=== PATIENT | male | born 1960 | race Caucasian/White ===

== ENCOUNTER → 2020-08-11 07:19 | Outpatient (CLI) | payer OTHER, SELFPAY ==
[2020-08-11 10:34] LABS: ALB/GLOB Ratio 0.9 RATIO (0.9-2.4); AST(SGOT) 16 U/L (15-37); Alanine Aminotransfer ALT/SGPT 24 U/L (16-61); Albumin, Serum 3.5 g/dL (3.2-5.0); Alkaline Phosphatase 107 U/L (45-117); Anion Gap 5 (5-15); BUN 10 mg/dL (7-18); BUN/Creat Ratio 11.4 RATIO (10-20); Calcium,Total 8.6 mg/dL (8.5-10.1); Chloride 108 mmol/L (98-107); Cholesterol 136 mg/dL (200); Creatinine, Serum 0.87 mg/dL (0.70-1.30); EST Glomerular Filtration Rate 95 mL/min (>60); Est Glom Filt Rate - Afr Amer 115 mL/min (>60); Glucose 99 mg/dL (74-106); High Density Lipoprotein 47 mg/dL; Protein, Total 7.5 g/dL (6.4-8.2); Sodium Level 141 mmol/L (136-145); Triglycerides 133 mg/dL; Very Low Density Lipoprotein 27 mg/dL (5-40)
[2020-08-12 15:02] LABS: PSA, Free 0.99 ng/mL; PSA, Free % 12.7 % (.); PSA, Total Ultrasensitive 7.8 ng/mL (0.0-4.0)
== END ==
PROVIDERS: PCP Family Medicine; Referring Provider Family Medicine; Visit Provider Family Medicine
DX: E78.5 Hyperlipidemia, unspecified (principal); R97.20 Elevated prostate specific antigen [PSA]
CPT/HCPCS: 36415; 80053; 80061; 84153; 84154

== ENCOUNTER → 2020-12-20 15:24 | Outpatient (CLI) | payer OTHER, SELFPAY ==
[2020-12-23 16:33] LABS: PSA, Free % 10.1 % (.); PSA, Total Ultrasensitive 10.9 ng/mL (0.0-4.0)
== END ==
PROVIDERS: PCP Family Medicine; Referring Provider Family Medicine; Visit Provider Family Medicine
DX: R97.20 Elevated prostate specific antigen [PSA] (principal)
CPT/HCPCS: 36415; 84153; 84154

== ENCOUNTER → 2020-12-26 15:30 | Outpatient (CLI) | payer OTHER, SELFPAY ==
--- NOTE | 2020-12-26 15:30 | LES_PTH ---
PATIENT: INGA EDWARD LOC: [facility] U#:[id number] AGE/SX: 65/M ROOM: RE12/26/[address]: Dr. Kelechi Felder MD : 1960 BED: DIS: SPEC #: [id number] RECD: 12/26/20 18:10 STATUS: EVITA TONIO #: [id number] CHECO: 12/26/20 15:[address]: Kelechi Felder DEPT: SURGICAL PATHOLOGY RECD BY: Laura Augustine Tissues: Skin of face, NOS Procedures: Surgery Specimen Level IV HEADER OPERATION: Shave biopsy atypical nevus right side face PRE-OP DIAGNOSIS: Rule out SCC TISSUE SUBMITTED: Shave biopsy atypical nevus face right side MICROSCOPIC DIAGNOSIS Right side of face, shave biopsy: Mild actinic change and extensive solar elastosis. Demodex folliculorum. AM:freya 12/28/2020 MICROSCOPIC DESCRIPTION Slides are reviewed. GROSS DESCRIPTION Received in fixative is one container labeled with the patient's name and designated shave biopsy. The specimen consists of a shave biopsy of griggs-white skin measuring 0.6 x 0.6 x 0.1 cm. The specimen is inked and submitted entirely in one cassette. It will be sectioned at the time of embedding. / SJ:freya 12/27/20 TC:5 [facility]: [id number]
== END ==
PROVIDERS: PCP Family Medicine; Referring Provider Family Medicine; Visit Provider Family Medicine
DX: B88.0 Other acariasis (principal)
CPT/HCPCS: 88305

== ENCOUNTER → 2021-06-27 11:20 | Outpatient (CLI) | payer OTHER, SELFPAY | PROVIDERS: PCP Family Medicine; Visit Provider Family Medicine | DX: R97.20 Elevated prostate specific antigen [PSA] (principal) | CPT/HCPCS: 36415; 84153 ==

== ENCOUNTER → 2021-08-15 10:15 | Outpatient (CLI) | payer OTHER, SELFPAY ==
--- NOTE | 2021-08-15 10:20 | MRI_ITS ---
STUDY: MR PELVIS WITH AND WITHOUT CONTRAST (PROSTATE) REASON FOR EXAM: Male, 61 years old. Elevated PSA TECHNIQUE: Standardized multiparametric prostate MRI with T1, T2, DWI/ADC sequences were obtained in 3 orthogonal planes, and dynamic contrast enhancement sequences. 50 ml of dotarem contrast material was administered intravenously for the contrast portion of the examination. COMPARISON: None. FINDINGS: The prostate volume measures 56 mm3. The contours of the prostate gland are lobulated. There is mild mass effect on the bladder base. The transition zone is heterogenous. PI-RADS DWI score 2 - Hypointense within a BPH nodule on ADC. PI-RADS T2W score 2 - A mostly encapsulated nodule OR a homogeneous circumscribed nodule without encapsulation (atypical nodule) or a homogeneous mildly hypointense area between nodules.. Contrast enhancement no early or contemporaneous enhancement; or diffuse multifocal enhancement NOT corresponding to a focal finding on T2W and/or DWI or focal ehancement responding to a lesion demonstrating features of BPH onT2WI (including features of extruded BPH in the PZ). The peripheral zone is homogenous. PI-RADS DWI score 2 - Linear/wedge shaped hypointense on ADC and/or linear/wedge shaped hyperintense on high b-value DWI. PI-RADS T2W score 1 - Uniformaly hyperintense (normal). Contrast enhancement no early or contemporaneous enhancement; or diffuse multifocal enhancement NOT corresponding to a focal finding on T2W and/or DWI or focal enhancement responding to a lesion demonstrating features of BPH onT2WI (including features of extruded BPH in the PZ). The seminal vesicles demonstrate normal margins and T2 signal pattern. No mass lesion or invasion depicted. The rectoprostatic angles are normal. Urinary bladder is normal without wall thickening. The vascular structures of the are normal. The visualized hollow viscus structures are normal. Colonic diverticulosis. No bone marrow edema or mass lesion depicted. Susceptibility artifact in the right hip replacement. MRI/Pelvis W/WO Contrast IMPRESSION: 1. PIRADS v2.1 2019 -- 2 - Low (clinically significant cancer is unlikely). Electronically Signed: Venktaa Napier MD (Brooks) at 14:21 EDT , Service support ,
--- NOTE | 2021-08-15 10:29 | RAD_ITS ---
STUDY: X-RAY - ORBITS REASON FOR EXAM: Male, 61 years old. HX METAL TO EYE, PRE MRI TECHNIQUE: 2 view(s) of the orbits were obtained. COMPARISON: None. FINDINGS: Normal bilateral orbits without a metallic orbital foreign body. Normal visualized facial bones. Opacification of the right maxillary sinus. The soft tissue structures are unremarkable. RAD/Orbits for Foreign Body IMPRESSION: No demonstrated metallic orbital foreign body. The patient is cleared for an MRI examination. Electronically Signed: Len Rice MD at 12:24 EDT , Service support ,
[2021-08-15 10:46] LABS: CREATININE FINGERSTICK < 0.6 mg/dL (0.70-1.30); EGFR FINGERSTICK > 60.0000 mL/min (>60)
== END ==
PROVIDERS: PCP Family Medicine; Referring Provider Nurse Practitioner Adult Health; Visit Provider Nurse Practitioner Adult Health
DX: R97.20 Elevated prostate specific antigen [PSA] (principal)
CPT/HCPCS: 70030; 72197; A9575

== ENCOUNTER 2022-01-31 08:33 | Outpatient (CLI) | payer OTHER, SELFPAY | END 2022-01-31 23:59 | disposition home or self-care (01) | PROVIDERS: PCP Family Medicine; Referring Provider Urology; Visit Provider Urology | DX: R97.20 Elevated prostate specific antigen [PSA] (principal) | CPT/HCPCS: 36415; 84153 ==

== ENCOUNTER → 2022-03-12 | Outpatient (CLI) | payer OTHER, SELFPAY ==
--- NOTE | 2022-03-12 | IMM_PTH ---
PATIENT: INGA EDWARD LOC: [facility] U#:[id number] AGE/SX: 62/M ROOM: RE03/12/[address]: Dr. Fred Peguero MD : 1960 BED: DIS: 03/12/2022 SPEC #: [id number] RECD: 03/14/22 13:01 STATUS: EVITA REQ #: [id number] CHECO: 03/12/22 00:[address]: Fred Peguero DEPT: IMMUNOHISTOCHEMISTRY RECD BY: Bonnie Strong ENTERED: 03/14/22 13:02 SP TYPE: IMMUNO OTHR DR: Dr. Kelechi Felder MD Tissues: D - PROSTATE LEFT F - PROSTATE LEFT Procedures: 34BE12 (add) P40 (add) 34BE12 (initial) PHYSICIAN & INSTITUTION [place] [id number] SPECIMEN INFORMATION: Tissue Source: D - Left prostate, apex, core biopsy, F - Left prostate, base, core biopsy Clinical Info: Elevated PSA Specimen Number: [id number] D & F CPT code: 47377, 42878 x3 METHODOLOGY: Deparaffinized sections of prefer/formalin-fixed tissue or PAP/DQ stained slides are incubated with monoclonal/polyclonal antibodies/oligonucleotide probes. Localization is made via biotin free immunoperoxidase method. Appropriate controls are performed and reacted as expected. Results on target cell population are indicated in the following table: RESULTS: ANTIBODY / CLONE RESULT Block D P40 (BC28) positive 34BE12 (34BE12) positive Block F P40 (BC28) positive 34BE12 (34BE12) positive These tests were developed and their performance characteristics determined by [facility]. They may not have been cleared or approved by the U.S. Food and Drug Administration. The FDA has determined that such clearance or approval is not necessary. The above immunohistochemical/dualISH markers are ordered and reviewed by the Pathologist. INTERPRETATION: D. Left prostate, apex, core biopsy: Benign prostatic tissue. F. Left prostate, base, core biopsy: Benign prostatic tissue. AM:freya 03/15/2022
--- NOTE | 2022-03-12 | PROSBIL_PTH ---
PATIENT: INGA EDWARD LOC: YONG U#:[id number] AGE/SX: 62/M ROOM: RE03/12/[address]: Dr. Fred Peguero MD : 1960 BED: DIS: 03/12/2022 SPEC #: [id number] RECD: 03/12/22 16:24 STATUS: EVITA RENohemi #: [id number] CHECO: 03/12/22 00:[address]: Fred Peguero DEPT: SURGICAL PATHOLOGY RECD BY: Bhanu Zepeda ENTERED: 03/13/22 09:29 SP TYPE: PROST BX MARISEL DR: Dr. Kelechi Felder MD Tissues: A - PROSTATE RIGHT B - PROSTATE RIGHT C - PROSTATE RIGHT D - PROSTATE LEFT E - PROSTATE LEFT F - PROSTATE LEFT Procedures: PROSTATE BX HEADER OPERATION: Prostate biopsy PRE-OP DIAGNOSIS: Elevated PSA TISSUE SUBMITTED: A - Right apex, B - Right mid, C - Right base, D - Left apex, E - Left mid, F - Left base MICROSCOPIC DIAGNOSIS A. Right prostate, apex, core biopsy: Focal glandular atrophy and mild chronic inflammation. Focal acute inflammation. B. Right prostate, mid, core biopsy: Mild chronic inflammation and focal acute inflammation. C. Right prostate, base, core biopsy: Mild chronic inflammation and focal acute inflammation. D. Left prostate, apex, core biopsy: Chronic inflammation and glandular atrophy. See comment. E. Left prostate, mid, core biopsy: Mild chronic inflammation and focal glandular atrophy. F. Left prostate, base, core biopsy: Mild chronic inflammation and focal acute inflammation. Focal glandular atrophy. See comment. AM:freya 03/14/2022 COMMENT D & F. Immunohistochemistry ([id number]) supports the above diagnosis. MICROSCOPIC DESCRIPTION Slides are reviewed. GROSS DESCRIPTION A - Received is one container designated prostate, right apex. The specimen consists of two elongated fragments of light griggs-white soft tissue each measuring 1.5 cm in length and 0.1 cm in diameter. The specimen is totally submitted in one cassette. B - Received is one container designated prostate, right mid. The specimen consists of two elongated fragments of light griggs-white soft tissue measuring 1.5 and 2 cm in length and 0.1 cm in diameter. The specimen is totally submitted in one cassette. C - Received is one container designated prostate, right base. The specimen consists of two elongated fragments of light griggs-white soft tissue measuring 0.8 and 1.5 cm in length and 0.1 cm in diameter. The specimen is totally submitted in one cassette. D - Received is one container designated prostate, left apex. The specimen consists of two elongated fragments of light griggs-white soft tissue measuring 0.6 x 0.9 cm in length and 0.1 cm in diameter. The specimen is totally submitted in one cassette. E - Received is one container designated prostate, left mid. The specimen consists of one elongated fragment of light griggs-white soft tissue measuring 1 cm in length and 0.1 cm in diameter. The specimen is totally submitted in one cassette. F - Received is one container designated prostate, left base. The specimen consists of two elongated fragments of light griggs-white soft tissue measuring 1.4 and 2.5 cm in length and 0.1 cm in diameter. The specimen is totally submitted in one cassette. / SJ:rg 03/13/2022 TC:2 CPT: 51582 x6
== END | disposition home or self-care (01) ==
LOC: LABSPEC 16:30
PROVIDERS: PCP Family Medicine; Referring Provider Urology; Visit Provider Urology
DX: R97.20 Elevated prostate specific antigen [PSA] (principal)
CPT/HCPCS: 88305; 88341; 88342; G0416

== ENCOUNTER → 2022-10-16 | Outpatient (CLI) | payer OTHER, SELFPAY | END | disposition home or self-care (01) | LOC: MTLAB 09:56 | PROVIDERS: PCP Family Medicine; Referring Provider Urology; Visit Provider Urology | DX: R97.20 Elevated prostate specific antigen [PSA] (principal) | CPT/HCPCS: 36415; 84153 ==

== ENCOUNTER 2022-11-06 08:06 | Day surgery (SDC) | payer OTHER, SELFPAY ==
[2022-11-06 08:30] VITALS: BP 154/73; PULSE 72; RESP 16; TEMP 36.1; O2SAT 100; BMI 21.8
[2022-11-06] MEDS: Lactated Ringers 1,000 ML 15 ML IV (08:33)
--- NOTE | 2022-11-06 09:13 | H&P.OPEN ---
HPI - General HPI Narrative INGA EDWARD, is a 62 M who presents for surveillance colonoscopy. His last colonoscopy was 5 years ago and polyps were removed. Patient denies any blood in the stool or abdominal pain or family history of colon cancer. ON LICENSE OF [facility] Medical History (Updated 11/06/22 @ 09:[address] Kenan Russell MD) Alcohol use Anxiety CPAP (continuous positive airway pressure) dependence Former smoker History of elevated PSA History of hiatal hernia Injury of head and neck Prostate disease Shortness of breath on exertion Sleep apnea Wears glasses Home Medications sertraline 50 mg tablet 75 mg PO DAILY 10/17/22 [History Last Taken Unknown] Allergy/AdvReac Type Severity Reaction Status Date / Time No Known Allergies Allergy Verified 11/06/22 08:29 Family History (Updated 10/17/22 @ 08:22 by Apoorva Naranjo) Mother Breast cancer Alzheimers disease Father Heart disease Hypertension Macular degeneration Surgical History (Updated 10/31/22 @ 13:55 by Latoya Jimenez) History of hip replacement History of mandibular surgery History of prostate biopsy History of shoulder surgery Social History (Updated 10/17/22 @ 08:22 by Apoorva Naranjo) current occupational status: employed Smoking Status: Former smoker Past Medical/Surgical History Planned Operation Planned Operative Procedure/s: COLONOSCOPY Previous Hospitalizations/Surgeries HX Hospitalizations: No Any Problems With Anesthesia: No You/Your Family Experience Fever (Hyperthermia) With Anes: No Cholinesterase deficiency: No Cardiovascular Hx of Irregular Heartbeat and/or Afib: No Hx Heart Attack: No Hx Congestive Heart Failure: No Hx Hypertension: No Hx Pacemaker: No Respiratory Hx Chronic Obstructive Pulmonary Disease (COPD): No Hx Asthma: No Hx Emphysema: No Hx Sleep Apnea: Yes CPAP: Yes BIPAP: No Hx Respiratory Tract Infection/Cold (presently): No Result (for STOP score): Positive Smoking Status: Former smoker Gastrointestinal Hx Gastroesophageal Reflux: No Hx Ulcer: No Neurological Hx Seizures: No Hx Head/Neck Injury: No Hx Headaches: No Hx Back Injury/Pain: No Does patient have nerve stimulator: No Miscellaneous Recent Exposure to Contagious Disease: No Allergies No Known Allergies Allergy (Verified 11/06/22 08:29) Discharge Is Pt Admitted From a Prison, or a Shelter: No Who Could Help: SISTER After D/C, Where Do you Plan to Go: Return Home Vital Signs Vital Signs Vital Signs: 11/06/22 08:30 11/06/22 08:30 Temperature 97.0 F L Temperature Source Temporal Pulse Rate 72 Respiratory Rate 16 Respiratory Pattern Normal Blood Pressure 154/73 H Blood Pressure Mean 100 Blood Pressure Source Monitor Blood Pressure Position Sitting Blood Pressure Location Left Arm Pulse Ox 100 Oxygen Delivery Method Room Air Weight Weight: 156 lb 8.451 oz Body Mass Index (BMI) 21.8 Physical Exam Const alert and oriented x3 HEENT normocephalic Eyes PERRL Resp normal respiratory effort and normal air movement Cardio regular rate and regular rhythm GI soft to palpation, non-tender and non-distended Extremity normal to inspection Assessment & Plan Assessment/Plan (1) History of colon polyps: PLAN: I explained endoscopy in detail to the patient. I explained the risks including but not limited to stroke or heart attack with anesthesia, perforation of the GI tract, bleeding, infection. I explained that any of these could necessitate further emergency surgery. The patient understands and all questions were answered sufficiently. The patient wishes to proceed with procedure. Kenan Russell MD Pager: [facility] [address] [place] [address] [address] [place] [address] Office: Surgery Risks - Colonoscopy Risks Include but are not Limited To: Risks include but are not limited to: Bleeding, perforation requiring further surgery, inability to complete colonoscopy requiring barium enema.
--- NOTE | 2022-11-06 09:34 | OP.COLON_ITS ---
Patient Name: Dionicio Velarde Procedure Date: 11/06/2022 9:10 AM Date of : 1960 Age: 62 Procedure: Colonoscopy Indications: High risk colon cancer surveillance: Personal history of colonic polyps Providers: Kenan Russell MD Referring MD: Kenan Russell MD Medicines: Monitored Anesthesia Care Patient Profile: This is a 62 year old male. Refer to note in patient chart for documentation of history and physical. Last Colonoscopy: 5 years ago. Complications: No immediate complications. Procedure: Pre-Anesthesia Assessment: - Prior to the procedure, a History and Physical was performed, and patient medications and allergies were reviewed. The patient's tolerance of previous anesthesia was also reviewed. The risks and benefits of the procedure and the sedation options and risks were discussed with the patient. All questions were answered, and informed consent was obtained. Prior Anticoagulants: The patient has taken no previous anticoagulant or antiplatelet agents. After reviewing the risks and benefits, the patient was deemed in satisfactory condition to undergo the procedure. After I obtained informed consent, the scope was passed under direct vision. Throughout the procedure, the patient's blood pressure, pulse, and oxygen saturations were monitored continuously. The colonoscope was introduced through the anus and advanced to the cecum, identified by appendiceal orifice and ileocecal valve. The colonoscopy was performed without difficulty. The patient tolerated the procedure well. The quality of the bowel preparation was good. Scope In: 9:19:30 AM Scope Withdrawal Time 0 hours 3 minutes 55 seconds Scope Out: 9:32:27 AM Total Procedure Duration Time 0 hours 12 minutes 57 seconds Findings: The entire examined colon appeared normal. Impression: - The entire examined colon is normal. - No specimens collected. Recommendation: - Discharge patient to home. - Resume previous diet. - Continue present medications. - Repeat colonoscopy in 10 years for screening purposes. Procedure Code(s): --- Professional --- 61795, Colonoscopy, flexible; diagnostic, including collection of specimen(s) by brushing or washing, when performed (separate procedure) Diagnosis Code(s): --- Professional --- Z86.010, Personal history of colonic polyps CPT copyright 2017 [employer] [place] [employer]. All rights reserved. The codes documented in this report are preliminary and upon front desk team member review may be revised to meet current compliance requirements. Kenan Russell MD 11/06/2022 9:34:00 AM This report has been signed electronically. Number of Addenda: 0 Note Initiated On: 11/06/2022 9:10 AM
[2022-11-06 09:35] VITALS: BP 154/73; BP 99/66; PULSE 70; RESP 16; TEMP 36.1; O2SAT 96
--- NOTE | 2022-11-06 09:35 | OP.CCLET_ITS ---
11/06/2022 Jas Felder [address] [place] [address] Re : Colonoscopy procedure for Dionicio [place] Dear Dr. Felder This procedure was performed on Sunday, November 06, 2022. My impressions and recommendations are as follows: Impressions : - The entire examined colon is normal. - No specimens collected. Recommendations : - Discharge patient to home. - Resume previous diet. - Continue present medications. - Repeat colonoscopy in 10 years for screening purposes. My findings are described in the full procedure note, which is enclosed. If I can be of further assistance, please feel free to contact me at Doctor phone number(s): , Work: . Sincerely, Kenan Russell MD 11/06/2022 9:34:00 AM This report has been signed electronically.
[2022-11-06 09:45] VITALS: BP 113/65; BP 154/73; PULSE 72; RESP 16; O2SAT 97
[2022-11-06 10:00] VITALS: BP 126/68; BP 154/73; PULSE 64; RESP 16; O2SAT 98
[2022-11-06 10:05] VITALS: BP 127/72; BP 154/73; PULSE 69; RESP 16; TEMP 36.1; O2SAT 98
[2022-11-06 10:15] VITALS: BP 154/73
== END 2022-11-06 10:22 | disposition home or self-care (01) ==
LOC: EN 08:08 → AC 08:11
PROVIDERS: PCP Family Medicine; Referring Provider Surgery; Visit Provider Surgery
PROC: 0DJD8ZZ Inspection of Lower Intestinal Tract, Via Natural or Artificial Opening Endoscopic (ICD-10-PCS; CPT 45378; principal; 2022-11-06 09:10)
DX: Z12.11 Encounter for screening for malignant neoplasm of colon (principal); Z87.891 Personal history of nicotine dependence; Z86.010 Personal history of colon polyps
CPT/HCPCS: 45378; J7120; J2405

== ENCOUNTER → 2023-08-01 | Outpatient (CLI) | payer OTHER, SELFPAY ==
--- NOTE | 2023-08-01 07:49 | CT_ITS ---
EXAM: CT CHEST, LUNG CANCER SCREENING WITHOUT INTRAVENOUS CONTRAST CLINICAL INDICATION: tobacco abuse TECHNIQUE: Helically acquired images were obtained of the chest without intravenous contrast using low dose (LDCT) lung cancer screening protocol. This CT exam was performed using one or more of the following dose reduction techniques: automated exposure control, adjustment of the mA and/or kV according to patient size, and/or use of iterative reconstruction technique. COMPARISON: No relevant prior studies available. FINDINGS: LUNGS AND PLEURAL SPACES: There is a slightly spiculated lesion in the right apex that measures 5 x 8 mm which may represent scar. There are mild emphysematous changes seen within the upper lobes. There is a calcified nodule in the right upper lobe anteriorly that measures 4 x 5 mm on series 2 image 92. No pleural effusion or thickening. No pneumothorax. HEART: Unremarkable. Heart size is normal. No pericardial effusion. No significant coronary artery calcifications. MEDIASTINUM: Unremarkable. No mediastinal or hilar adenopathy. Esophagus is unremarkable. No hiatal hernia. THYROID: Unremarkable. No thyroid lesions. BONES/JOINTS: Unremarkable. No suspicious lytic or blastic abnormality. VASCULATURE: Unremarkable. Thoracic aorta is non-dilated. LYMPH NODES: Unremarkable. No enlarged lymph nodes. CT/Low Dose CT Lung Screening IMPRESSION: Noncalcified nodule in the right upper lobe anteriorly. There is also a slightly spiculated nodule in the right apex. There are underlying emphysematous changes. Lung-RADS score: 4X - Very Suspicious. There are additional features or imaging findings that increase the suspicion of malignancy. Recommend chest CT with or without contrast, PET/CT and/or tissue sampling depending on the probability of malignancy and comorbidities. PET/CT may be used when there is a >=8 mm solid component. For new large nodules that develop on an annual repeat screening CT, a 1 month LDCT may be recommended to address potentially infectious or inflammatory conditions. Electronically Signed: Fabio Kolb MD at 19:04 EDT ,
== END | disposition home or self-care (01) ==
LOC: CT 07:48
PROVIDERS: PCP Family Medicine; Referring Provider Family Medicine; Visit Provider Family Medicine
DX: Z12.2 Encounter for screening for malignant neoplasm of respiratory organs (principal); Z72.0 Tobacco use
CPT/HCPCS: 71271

== ENCOUNTER → 2023-08-30 | Outpatient (CLI) | payer OTHER, SELFPAY ==
--- NOTE | 2023-08-30 13:57 | RAD_ITS ---
STUDY: X-RAY - CERVICAL SPINE REASON FOR EXAM: Male, 63 years old. torticollis TECHNIQUE: 5 view(s) of the cervical spine were obtained. COMPARISON: None FINDINGS: Normal anterior atlantoaxial articulation. Normal odontoid process. Normal cervical lordosis. There is multi-level endplate spondylosis. There is multi-level degenerative disc disease with multilevel disc space narrowing. There is multi-level osseous foraminal stenosis. The soft tissue structures are unremarkable. RAD/Cerv Spine 4 or 5 Views IMPRESSION: Moderate degenerative disc disease. MRI may be useful. Electronically Signed: Tristan Scott MD at 0:00 EST ,
== END | disposition home or self-care (01) ==
LOC: MTRAD 13:54
PROVIDERS: PCP Family Medicine; Referring Provider Family Medicine; Visit Provider Family Medicine
DX: M43.6 Torticollis (principal)
CPT/HCPCS: 72050

== ENCOUNTER → 2023-09-17 | Outpatient (CLI) | payer OTHER, SELFPAY ==
--- NOTE | 2023-09-17 09:30 | PET_ITS ---
EXAMINATION: FDG PET/CT ? INDICATIONS: 63-year-old male with a history of pulmonary nodularity. ? COMPARISON EXAMINATION: CT of the chest report dated 08/01/2023. ? TECHNIQUE: Following the intravenous administration of 11.66 mCi of F-18 deoxyglucose via the right antecubital fossa, multiplanar image acquisitions of the head, neck, chest, abdomen and pelvis to the level of the midthigh, obtained at one-hour post radiopharmaceutical administration contemporaneously interpreted with the current CT of the chest, abdomen and pelvis dated 09/17/[address] of the chest report dated 08/01/2023 via coregistration reveal: SERUM GLUCOSE LEVEL:? 114 mg/dL? HEIGHT:?? 69 inches WEIGHT:?? 164 pounds ? FINDINGS: ? HEAD/NECK:? Prominent uptake is defined in the anterior neck, laryngeal structures to the left and right of the midline in proximity to the anterior commissure without evidence of soft tissue thickening, most consistent with normal physiologic tracer uptake. ? The visualized portion of the cerebral cortical-subcortical structures demonstrate symmetric and preserved glucose metabolism. ? CHEST:? There is no quantitative scintigraphic evidence of abnormal increased glucose metabolism within the context of the bilateral hemithorax pulmonary parenchyma, right and left hemithorax at the pleural interface, mediastinal structures, and left-right thoracic perihilum. Prominent uptake is defined in the descending thoracic aorta most consistent with activated leukocytes associated with atherosclerotic plaque formation. ? CT of the chest demonstrates the following anatomic characteristics: Emphysematous changes are defined in the bilateral upper-mid lung zones. Atherosclerotic calcification is defined in the thoracic aorta without evidence of dilatation, aneurysm formation. Coronary arterial calcification is observed. Mediastinal and bilateral axillary soft tissue densities are nonglucose avid. Parenchymal densities defined in the bilateral upper hemithorax reveal no evidence of increased tracer uptake. ? ABDOMEN/PELVIS:? Normal physiologic distribution of the radiopharmaceutical is identified in the hepatic and splenic parenchyma, both renal units, urinary bladder, and visualized intestinal tract. ? CT of the abdomen and pelvis is remarkable for the following: Atherosclerotic calcification is defined in the abdominal aorta without evidence of dilatation, aneurysm formation. Abdominal-pelvic arterial calcification is observed. Right-left inguinal soft tissue densities are ametabolic. Colonic diverticulosis is encountered without evidence of diverticulitis. ? SKELETAL:? A right hip arthroplasty is demonstrated. ? Degenerative changes defined in the thoracic and lumbar spine demonstrate no evidence of increased glucose metabolism. There are no sclerotic, mixed sclerotic-lytic, or primarily lytic changes defined in the axial skeletal structures with evidence of increased FDG uptake. ? PET/PET/CT Tumor Base -Thigh Init IMPRESSION: 1. NEGATIVE EXAMINATION. There is no definitive quantitatively significant scintigraphic evidence of viable neoplasm. 2. Metabolic, morphologic stability may be ensured in the right hemithorax parenchymal changes with repeat FDG-PET CT imaging in 3-6 months if clinically indicated. (Tanvi, Seminars in Thoracic and Cardiovascular surgery, 14:292, 2002). Electronic Signature Tristan Newby D.O. Accurate Quantification of SUVs for this report are calculated using the exclusive [employer]. (U.S. Patent No. [id number], [id number] 983 B2 [phone] [place] patent [id number] [phone]). Standardization and correction of the FDG SUV metric via [employer] technology allow for vendor non-specific objective quantitative examination comparison and optimization of the sensitivity and specificity of the FDG PET-CT examination. . [email or web address] Electronically Signed: Tristan Newby DO at 23:13 EST ,
== END | disposition home or self-care (01) ==
PROVIDERS: PCP Family Medicine; Referring Provider Family Medicine; Visit Provider Family Medicine
DX: R91.8 Other nonspecific abnormal finding of lung field (principal)
CPT/HCPCS: 78815; A9552

== ENCOUNTER → 2023-12-11 | Outpatient (CLI) | payer OTHER, SELFPAY ==
--- OUTSIDE RECORDS SUMMARY | 2023-12-11 08:38 | XMS RPT_ITS | CCD ---
Author Name Unknown Address [address] [place] [address] Organization [facility] Care Team Providers Care Gate Agent Name Role Phone Diogo Aviles MD Primary Care Provider BEKSAC, ALP TUNA Referring Unavailable DIOGO AVILES Primary Care Unavailabl e BEKSAC, ALP TUNA Referring Unavailable DIOGO AVILES Primary Care Unavailabl e KIRSTIN, BLANCA Referring Unavailable DIOGO AVILES Primary Care Unavailabl e BEKSAC, ALP TUNA Attending Unavailable DIOGO AVILES Primary Care Unavailabl e BEKSAC, ALP TUNA Referring Unavailable BEKSAC, ALP TUNA Attending Unavailable Diogo Aviles MD Primary Care Provider Medications Current Medications Medication Drug Class(es) Dates Sig (Normalized) Sig (Original) iv contrast (will be provided with radiology test) (1 source) Start: 04-24-2023 End: 04-25-2023 iv contrast (will be provided with radiology test) Indications: Encounter for observation for other suspected diseases and conditions ruled out , Elevated prostate specific antigen (PSA) MRI Prostate Inject, intravenously, once for 1 dose. No IV access, insert saline lock prior to the beginning of sedation, infusion, injection of imaging exam. Discontinue saline lock post exam. If Pt. has a central line or IVAD, may access for administration according to line specific nursing protocol. Once exam is complete flush line and de-access according to line specific nursing protocol in the MR contrast administration guidelines link. 1 Each 0 04/24/2023 04/25/2023 Active Completed/Discontinued Medications Medication Drug Class(es) Dates Sig (Normalized) Sig (Original) smoking cessation 12 hr buPROPion hydrochloride 150 mg extended release oral tablet (5 sources) Aminoketone Start: 09-24-2005 ZYBAN 150 MG TAB Take one(1) tablet daily. 0 09/24/2005 Active Problems Active Problems Problem Classification Problem Date Documented Da te Episodic/Chronic Other screening for suspected conditions (not mental disorders or infectious disease) (7 sources) Raised prostate specific antigen; Translations: [Elevated prostate specific antigen [PSA]] Onset: 06-27-2023 Episodic Past or Other Problems Problem Classification Problem Date Documented Da te Episodic/Chronic Contraceptive and procreative management (7 sources) Patient encounter status; Translations: [Encounter for sterilization] Onset: 09-17-2005 09-17-2005 Episodic Results Test Name Value Interpretation Reference Range Facil ity Vital Signs Date Time Vital Sign Value Performing Clinician Faci lity 07-01-2023 09:10-0400 Body temperature 97.2 [degF] Wilbur Avila MD Work Phone: [facility] 07-01-2023 09:10-0400 Body weight 72.12 kg Wilbur Avila MD Work Phone: [facility] 07-01-2023 09:10-0400 Diastolic blood pressure 73 mm[Hg] Wilbur Avila MD Work Phone: [facility] 07-01-2023 09:10-0400 Heart rate 79 /min Wilbur Avila MD Work Phone: [facility] 07-01-2023 09:10-0400 Systolic blood pressure 127 mm[Hg] Wilbur Avila MD Work Phone: [facility] 11-12-2022 12:59-0500 Body temperature 97.9 [degF] Wilbur Avila MD Work Phone: [facility] 11-12-2022 12:59-0500 Body weight 75.48 kg Wilbur Avila MD Work Phone: [facility] 11-12-2022 12:59-0500 Diastolic blood pressure 79 mm[Hg] Wilbur Avila MD Work Phone: [facility] 11-12-2022 12:59-0500 Heart rate 82 /min Wilbur Avila MD Work Phone: [facility] 11-12-2022 12:59-0500 Systolic blood pressure 128 mm[Hg] Wilbur Avila MD Work Phone: [facility] Encounters Encounter Date Encounter Type Care Provider Facility Start: 07-01-2023 End: 07-01-2023 ambulatory DIOGO AVILES Facility:[facility] Start: 07-01-2023 End: 07-01-2023 Patient encounter procedure Wilbur Avila MD Work Phone: Urology Procedures Date Procedure Procedure Detail Performing Clinician Start: 06-27-2023 MRI 3D POST PROCESSING Wilbur Avila MD Work Phone: Start: 06-27-2023 Mri pelvis w/o & w/contrast material Wilbur Avila MD Work Phone: Plan of Treatment Date Care Activity Detail Author Start: 04-16-2028 PROSTATE CANCER SCREENING DISCUSSION PROSTATE CANCER SCREENING DISCUSSION [facility] Start: 06-21-2023 Influenza vaccination INFLUENZA (#1) [facility] Start: 10-21-2022 DEPRESSION ASSESSMENT DEPRESSION ASSESSMENT [facility] Start: 06-21-2022 Influenza vaccination INFLUENZA (#1) [facility] Start: 12-11-2021 COVID-19 VACCINE (5 - Booster for Pfizer series) COVID-19 VACCINE (5 - Booster for Pfizer series) [facility] Start: 12-11-2021 COVID-19 VACCINE (5 - Pfizer series) COVID-19 VACCINE (5 - Pfizer series) [facility] Start: 02-17-2016 PROSTATE CANCER SCREENING DISCUSSION PROSTATE CANCER SCREENING DISCUSSION [facility] Start: 2011 SHINGRIX VACCINE (1 of 2) SHINGRIX VACCINE (1 of 2) [facility] Start: 2006 COLOGUARD (FIT-DNA) COLOGUARD (FIT-DNA) [facility] Start: 2006 Colonoscopy COLONOSCOPY [facility] Start: 2006 COLORECTAL CANCER SCREENING COLORECTAL CANCER SCREENING [facility] Start: [address] COLONOGRAPHY [facility] Start: 2006 DIABETES SCREEN DIABETES SCREEN [facility] Start: 2006 FECAL OCCULT BLOOD FECAL OCCULT BLOOD [facility] Start: 2006 SIGMOIDOSCOPY SIGMOIDOSCOPY [facility] Start: 02-17-1996 LIPID SCREEN LIPID SCREEN [facility] Start: 02-17-1980 Urine microalbumin profile DTAP,TDAP,TD (1 - Tdap) [facility] Start: 1979 HEPATITIS C SCREENING HEPATITIS C SCREENING [facility] Start: 1979 HIV SCREENING HIV SCREENING [facility] Start: 1967 PNEUMOCOCCAL (1 - PCV) PNEUMOCOCCAL (1 - PCV) [facility] End: 05-23-2024 MRI 3D POST PROCESSING MRI 3D POST PROCESSING Radiology Routine Encounter for observation for other suspected diseases and conditions ruled out Elevated prostate specific antigen (PSA) 1 Occurrences starting 04/24/2023 until 05/23/2024 [facility] Work Phone: Payers Date Payer Category Payer Private Health Insurance [facility] UMR CHOICE PLUS [id number] 2020-Present [phone] [address] [address] [place] [address] O [id number] 2020 Unknown [id number] Social History Date Type Detail [facility] End: 12-19-2022 History of tobacco use Cigarette Smoker [facility] Start: 09-24-2005 End: 07-01-2023 Alcohol intake Current drinker of alcohol (finding) [facility] Start: 1960 Sex Assigned At Male [facility] Start: 11-12-2022 End: 07-01-2023 History of Social function [facility] Start: 11-12-2022 End: 07-01-2023 Area Deprivation Index [facility] National Score (1-10 0), lower number is lower risk 63 [facility] Start: 05-18-2020 Gender identity Identifies as male gender (finding) [facility] Start: 05-18-2020 Sexual orientation Heterosexual (fin ding) [facility] Start: 07-01-2023 Tobacco smoking stat us NHIS Ex-smoker [facility] End: 12-19-2022 History of tobacco use Current smoker [facility] Start: 07-01-2023 Tobacco use and exposure Smoke less tobacco non-user [facility] Clinical Notes 11-12-2022 to 07-01-2023 Wilbur Avila MD - 07/01/2023 9:30 AM Eileen Klein RN - 06/27/2023 8:00 AM Shelli Heath RT(R) - 06/27/2023 8:00 AM EDTTelephone Encounter - Wilbur Avila MD - 04/24/2023 10:10 AM EDT Note Date & Type Note Facility 07-01-2023 Note HNO ID: [id number] Author: Wilbur Avila MD Service: ? Author Type: Physician Type: Progress Notes Filed: 07/01/2023 9:59 AM Note Text: [facility] HISTORY AND PHYSICAL EXAM PATIENT INFO: Inga Velarde CHIEF COMPLAINT: elevated psa HPI Inga Velarde is a 63 year old male who presents for elevated psa follow up Has history of elevated PSA to 13, (6- 8 starting around 8 years ago per pt), previous biopsy negative in [place]. Had genetic risk test (does not recall), was low risk for cancer. 01/2022 PSA: 13.20 09/2022 PSA: 13.60 03/2023 PSA: 12.58 Last biopsy was 02/2022, negative (OSH) 07/2021 Prostate MRI reread at [facility]: 49g prostate. Right mid/base TZ pirads 3 2.2 cm lesion. Left apex/mid anterior tz 7 mm pirads 3 lesion 06/27/2023 Prostate MRI: 81g prostate without lesions His maternal grandfather had prostate cancer PATHOLOGY: 03/12/2022 Prostate Biopsy: Benign LABS: No results found for: CREAT PSA (ng/mL) Date Value 04/16/2023 12.58 (H) IMAGIN06/27/2023 Prostate MRI: Prostate: Dimensions: 6.0 x 5.0 x 6.2 cm corresponding to a volume of approximately 81 cc. Post biopsy hemorrhage: Absent Peripheral zone: Diffuse mild T2/ADC map hypointensity (PI-RADS 2). No focal lesion present. Transition zone: There is transition zone hypertrophy, without focal abnormalities suspicious for clinically significant disease (PI-RADS 1). Neurovascular bundle: Unremarkable. Seminal vesicles: Unremarkable. Adjacent Organ Involvement: Not applicable. Lymph nodes: No enlarged pelvic lymph nodes. Bladder: Unremarkable. Pelvic bones: Right hip arthroplasty. No suspicious lesion. Other Findings: Colonic diverticulosis. IMPRESSION: No evidence of clinically significant prostate cancer Diffuse mild T2/ADC map hypointensity (PI-RADS 2). ALLERGIES: ALLERGIES No Known Allergies MEDICATIONS: Current Outpatient Medications Medication Sig sertraline HCl (SERTRALINE ORAL) Take by mouth. ZYBAN 150 MG TAB Take one(1) tablet daily. (Patient not taking: Reported on 11/12/2022) No current facility-administered medications for this visit. HISTORIES No past medical history on file. PAST SURGICAL HISTORY Procedure Laterality Date AUGMENT LOWER JAW BONE,BONE GRAFT 1985 REPAIR SHOULDER CAPSULE,ANTERIOR repair of ligament Social History Tobacco Use Smoking status: Every Day Packs/day: 0.50 Years: 20.00 Additional pack years: 0.00 Total pack years: 10.00 Types: Cigarettes Substance Use Topics Alcohol use: Yes Comment: occasionally REVIEW OF SYSTEMS General: No weight loss, malaise or fevers., SEE HPI Genitourinary: See HPI The remainder of the ROS was reviewed and was negative. PHYSICAL EXAMINATION There were no vitals taken for this visit. General: No acute distress Genitourinary: FLAVIO benign PROBLEMS: 1. Elevated prostate specific antigen (PSA) - ICD9: 790.93, ICD10: R97.20 ASSESSMENT AND PLAN: Inga Velarde is a 63 year old male who presents with elevated Psa of 13. PSA stable. MRI showed 81g prostate without lesions. 02/2022 biopsy negative. We discussed PSA surveillance. Psa q 6 months FU in a year I spent a total of 30 minutes on the date of the service which included preparing to see the patient, [id number] patient care, and completing clinical documentation. Wilbur Avila MD Associate Staff, Department of Urology [facility] 07-01-2023 History of Presen t illness Narrative [facility] HISTORY AND PHYSICAL EXAM PATIENT INFO: Inga Velarde CHIEF COMPLAINT: elevated psa HPI Inga Velarde is a 63 year old male who presents for elevated psa follow up Has history of elevated PSA to 13, (6- 8 starting around 8 years ago per pt), previous biopsy negative in [place]. Had genetic risk test (does not recall), was low risk for cancer. 01/2022 PSA: 13.20 09/2022 PSA: 13.60 03/2023 PSA: 12.58 Last biopsy was 02/2022, negative (OSH) 07/2021 Prostate MRI reread at [facility]: 49g prostate. Right mid/base TZ pirads 3 2.2 cm lesion. Left apex/mid anterior tz 7 mm pirads 3 lesion 06/27/2023 Prostate MRI: 81g prostate without lesions His maternal grandfather had prostate cancer PATHOLOGY: 03/12/2022 Prostate Biopsy: Benign LABS: No results found for: CREAT PSA (ng/mL) Date Value 04/16/2023 12.58 (H) IMAGIN06/27/2023 Prostate MRI: Prostate: Dimensions: 6.0 x 5.0 x 6.2 cm corresponding to a volume of approximately 81 cc. Post biopsy hemorrhage: Absent Peripheral zone: Diffuse mild T2/ADC map hypointensity (PI-RADS 2). No focal lesion present. Transition zone: There is transition zone hypertrophy, without focal abnormalities suspicious for clinically significant disease (PI-RADS 1). Neurovascular bundle: Unremarkable. Seminal vesicles: Unremarkable. Adjacent Organ Involvement: Not applicable. Lymph nodes: No enlarged pelvic lymph nodes. Bladder: Unremarkable. Pelvic bones: Right hip arthroplasty. No suspicious lesion. Other Findings: Colonic diverticulosis. IMPRESSION: No evidence of clinically significant prostate cancer Diffuse mild T2/ADC map hypointensity (PI-RADS 2). ALLERGIES: ALLERGIES No Known Allergies MEDICATIONS: Current Outpatient Medications Medication Sig sertraline HCl (SERTRALINE ORAL) Take by mouth. ZYBAN 150 MG TAB Take one(1) tablet daily. (Patient not taking: Reported on 11/12/2022) No current facility-administered medications for this visit. HISTORIES No past medical history on file. PAST SURGICAL HISTORY Procedure Laterality Date AUGMENT LOWER JAW BONE,BONE GRAFT 1985 REPAIR SHOULDER CAPSULE,ANTERIOR repair of ligament Social History Tobacco Use Smoking status: Every Day Packs/day: 0.50 Years: 20.00 Additional pack years: 0.00 Total pack years: 10.00 Types: Cigarettes Substance Use Topics Alcohol use: Yes Comment: occasionally REVIEW OF SYSTEMS General: No weight loss, malaise or fevers., SEE HPI Genitourinary: See HPI The remainder of the ROS was reviewed and was negative. PHYSICAL EXAMINATION There were no vitals taken for this visit. General: No acute distress Genitourinary: FLAVIO benign PROBLEMS: 1. Elevated prostate specific antigen (PSA) - ICD9: 790.93, ICD10: R97.20 ASSESSMENT & PLAN: Inga Velarde is a 63 year old male who presents with elevated Psa of 13. PSA stable. MRI showed 81g prostate without lesions. 02/2022 biopsy negative. We discussed PSA surveillance. Psa q 6 months FU in a year I spent a total of 30 minutes on the date of the service which included preparing to see the patient, [id number] patient care, and completing clinical documentation. Wilbur Avila MD Associate Staff, Department of Urology [facility] documented in this encounter [facility] 06-27-2023 Note HNO ID: [id number] Author: Eileen Blue RN Service: Radiology Author Type: Registered Nurse Type: Progress Notes Filed: 06/27/2023 7:49 AM Note Text: Radiology Service Progress Note DATE OF SERVICE: June 27, 2023 TIME: 7:44 AM PATIENT WEIGHT: 170 LBS PATIENT IDENTITY VERIFICATION COMPLETED USING TWO (2) STANDARD IDENTIFIERS: Name and Date of confirmed by patient verbally and Name and Date of confirmed by identification band. FALL SCREENING: Has the patient had 2 falls in the last year or 1 fall with injury or currently using an Ambulatory Assistive Device (Walker, Cane, Wheelchair, Crutches, etc.)? No PATIENT GENDER DATA: Male ALLERGIES: Reviewed and unchanged CONTRAST ALLERGY: No EXAM: MRI - CONTRAST TYPE: GROUP II IV SITE: Ambulatory: A peripheral IV was started in the Left antecubital site with a Angio cath: 22 gauge. and A Saline lock was inserted per protocol IV SITE APPEARANCE: Clean,Dry and Intact SIGNATURE: Eileen Blue RN PATIENT NAME: Inga Velarde DATE: June 27, 2023 TIME: 7:44 AM [facility] 06-27-2023 Note HNO ID: [id number] Author: Shelli Wilson RT(R) Service: Radiology Author Type: Technologist Type: Progress Notes Filed: 06/27/2023 9:42 AM Note Text: Radiology Service Progress Note PATIENT NAME: Inga Velarde DATE OF SERVICE: June 27, 2023 TIME: 9:41 AM PATIENT IDENTITY VERIFICATION COMPLETED USING TWO (2) IDENTIFIERS: Name and Date of confirmed by patient verbally and Name and Date of confirmed by identification band. FALL SCREENING: Has the patient had 2 falls in the last year or 1 fall with injury or currently using an Ambulatory Assistive Device (Walker, Cane, Wheelchair, Crutches, etc.)? No PATIENT GENDER DATA: Male PATIENT RELEVANT IMPLANT DATA REVIEWED: Yes RADIOLOGY DEPARTMENT: MR; Exam(s) Completed: Body: Prostate PERIPHERAL IV DATA: Site assessment: Clean,Dry and Intact, Site disposition Discontinued SIGNED BY: RT Armando(R) June 27, 2023 9:41 AM [facility] 06-27-2023 History of Presen t illness Narrative Radiology Service Progress Note DATE OF SERVICE: June 27, 2023 TIME: 7:44 AM PATIENT WEIGHT: 170 LBS PATIENT IDENTITY VERIFICATION COMPLETED USING TWO (2) STANDARD IDENTIFIERS: Name and Date of confirmed by patient verbally and Name and Date of confirmed by identification band. FALL SCREENING: Has the patient had 2 falls in the last year or 1 fall with injury or currently using an Ambulatory Assistive Device (Walker, Cane, Wheelchair, Crutches, etc.)? No PATIENT GENDER DATA: Male ALLERGIES: Reviewed and unchanged CONTRAST ALLERGY: No EXAM: MRI - CONTRAST TYPE: GROUP II IV SITE: Ambulatory: A peripheral IV was started in the Left antecubital site with a Angio cath: 22 gauge. and A Saline lock was inserted per protocol IV SITE APPEARANCE: Clean,Dry and Intact SIGNATURE: Eileen Blue RN PATIENT NAME: Inga Velarde DATE: June 27, 2023 TIME: 7:44 AM Radiology Service Progress Note PATIENT NAME: Inga Velarde DATE OF SERVICE: June 27, 2023 TIME: 9:41 AM PATIENT IDENTITY VERIFICATION COMPLETED USING TWO (2) IDENTIFIERS: Name and Date of confirmed by patient verbally and Name and Date of confirmed by identification band. FALL SCREENING: Has the patient had 2 falls in the last year or 1 fall with injury or currently using an Ambulatory Assistive Device (Walker, Cane, Wheelchair, Crutches, etc.)? No PATIENT GENDER DATA: Male PATIENT RELEVANT IMPLANT DATA REVIEWED: Yes RADIOLOGY DEPARTMENT: MR; Exam(s) Completed: Body: Prostate PERIPHERAL IV DATA: Site assessment: Clean,Dry and Intact, Site disposition Discontinued SIGNED BY: RT Armadno(R) June 27, 2023 9:41 AM documented in this encounter [facility] 04-24-2023 Miscellaneous Notes Discussed the lesions on the past MRI in 2020. We discussed a fusion biopsy. However the MRI is from 2 years ago. We discussed a repeat MRI to evaluate better. Wilbur Avila MD documented in this encounter [facility] 11-12-2022 Nurse Note PVR=15ml Dr sara Akins MA November 12, 2022 4:22 PM documented in this encounter [facility] 11-12-2022 Note HNO ID: [id number] Author: Wilbur Avila MD Service: ? Author Type: Physician Type: Progress Notes Filed: 11/12/2022 1:57 PM Note Text: [facility] HISTORY AND PHYSICAL EXAM PATIENT INFO: Inga PULLIAM M.D.: Fred Peguero () [address] [address] PCP: Diogo Aviles MD Consultation requested by Fred Peguero () [address] [address] and my final recommendations will be communicated back to the requesting physician by way of shared medical record or letter via [place] mail. CHIEF COMPLAINT: Elevated PSA HPI Inga Velarde is a 62 year old male who presents for evaluation of elevated PSA. Has history of elevated PSA to 13, (6- 8 starting around 8 years ago per pt), previous biopsy negative in [place]. Had genetic risk test (does not recall), was low risk for cancer. 01/2022 PSA: 13.20 09/2022 PSA: 13.60 Last biopsy was 02/2022, negative Has had recent MRI ~6 months ago, also negative as per patient. Report and images missing. Was told he had large prostate, cannot recall size. FH: Maternal grandfather had prostate cancer. International Prostate Symptom Score (I-PSS) In the last month: Incomplete Emptying -How often have you had the sensation of not emptying your bladder? 0 Frequency -How often have you had to urinate less than every two hours? 0 Intermittency -How often have you found you stopped and started again several times when you urinated? 2 Urgency -How often have you found it difficult to postpone urination? 0 Weak Stream -How often have you had a weak urinary stream? 2 Straining -How often have you had to strain to start urination? 1 Nocturia -How many times did you typically get up at night to urinate? 1 Final Score: 1-7 Mild Quality of Life Due to Urinary Symptoms- 1- Pleased PVR 34 ml today No PSA on file No previous imaging noted in system. Denies nocturia, stream is ok. Denies history of hematuria, malignancy PATHOLOGY: 03/12/2022 12 Core Prostate Biopsy at OSH: A. Right prostate, apex, core biopsy: Focal glandular atrophy and mild chronic inflammation. Focal acute inflammation. B. Right prostate, mid, core biopsy: Mild chronic inflammation and focal acute inflammation. C. Right prostate, base, core biopsy: Mild chronic inflammation and focal acute inflammation. D. Left prostate, apex, core biopsy: Chronic inflammation and glandular atrophy. See comment. E. Left prostate, mid, core biopsy: Mild chronic inflammation and focal glandular atrophy. F. Left prostate, base, core biopsy: Mild chronic inflammation and focal acute inflammation. Focal glandular atrophy. LABS: 01/2022 PSA: 13.20 09/2022 PSA: 13.60 IMAGING: None on file ALLERGIES: ALLERGIES No Known Allergies MEDICATIONS: Current Outpatient Medications Medication Sig ZYBAN 150 MG TAB Take one(1) tablet daily. No current facility-administered medications for this visit. HISTORIES No past medical history on file. PAST SURGICAL HISTORY Procedure Laterality Date AUGMENT LOWER JAW BONE,BONE GRAFT 1985 REPAIR SHOULDER CAPSULE,ANTERIOR repair of ligament Social History Tobacco Use Smoking status: Every Day Packs/day: 0.50 Years: 20.00 Pack years: 10.00 Types: Cigarettes Substance Use Topics Alcohol use: Yes Comment: occasionally REVIEW OF SYSTEMS General: Genitourinary: No history of dysuria, frequency or incontinence The remainder of the ROS was reviewed and conccontributory. PHYSICAL EXAMINATION There were no vitals taken for this visit. General: No acute distress Genitourinary: FLAVIO benign, 40-50g prostate PROBLEMS: 1. Elevated prostate specific antigen (PSA) - ICD9: 790.93, ICD10: R97.20 ASSESSMENT AND PLAN: Inga Velarde is a 62 year old male who presents with elevated PSA. He had two negative biopsies in the past. Last biopsy 02/2022. MRI records missing. Negative MRI as per patient. We discussed elevated PSA, the benign and malignant causes of it. He has two negative biopsies. However, the OSH MRI is missing. FLAVIO benign today. Request prostate MRI from OSH and have it reread at [facility] PSA in 6 months Dictation assisted by Nixon Wilson MD I spent a total of 45 minutes on the date of the service which included preparing to see the patient, [id number] patient care, and completing clinical documentation. Wilbur Avila MD Associate Staff, Department of Urology [facility] 11-12-2022 Miscellaneous Notes Just want to make sure that the PSA lab order is in for patient for when he goes for his lab work in 6 months documented in this encounter [facility] 11-12-2022 History of Presen t illness Narrative [facility] HISTORY AND PHYSICAL EXAM PATIENT INFO: Inga Velarde REFERRING M.D.: Fred Peguero ([facility]) [address] [place] [id number] PCP: Diogo Aviles MD Consultation requested by Fred Peguero ([facility]) [address] [address] and my final recommendations will be communicated back to the requesting physician by way of shared medical record or letter via [place] mail. CHIEF COMPLAINT: Elevated PSA HPI Inga Velarde is a 62 year old male who presents for evaluation of elevated PSA. Has history of elevated PSA to 13, (6- 8 starting around 8 years ago per pt), previous biopsy negative in [place]. Had genetic risk test (does not recall), was low risk for cancer. 01/2022 PSA: 13.20 09/2022 PSA: 13.60 Last biopsy was 02/2022, negative Has had recent MRI ~6 months ago, also negative as per patient. Report and images missing. Was told he had large prostate, cannot recall size. FH: Maternal grandfather had prostate cancer. International Prostate Symptom Score (I-PSS) In the last month: Incomplete Emptying -How often have you had the sensation of not emptying your bladder? 0 Frequency -How often have you had to urinate less than every two hours? 0 Intermittency -How often have you found you stopped and started again several times when you urinated? 2 Urgency -How often have you found it difficult to postpone urination? 0 Weak Stream -How often have you had a weak urinary stream? 2 Straining -How often have you had to strain to start urination? 1 Nocturia -How many times did you typically get up at night to urinate? 1 Final Score: 1-7 Mild Quality of Life Due to Urinary Symptoms- 1- Pleased PVR 34 ml today No PSA on file No previous imaging noted in system. Denies nocturia, stream is ok. Denies history of hematuria, malignancy PATHOLOGY: 03/12/2022 12 Core Prostate Biopsy at OSH: A. Right prostate, apex, core biopsy: Focal glandular atrophy and mild chronic inflammation. Focal acute inflammation. B. Right prostate, mid, core biopsy: Mild chronic inflammation and focal acute inflammation. C. Right prostate, base, core biopsy: Mild chronic inflammation and focal acute inflammation. D. Left prostate, apex, core biopsy: Chronic inflammation and glandular atrophy. See comment. E. Left prostate, mid, core biopsy: Mild chronic inflammation and focal glandular atrophy. F. Left prostate, base, core biopsy: Mild chronic inflammation and focal acute inflammation. Focal glandular atrophy. LABS: 01/2022 PSA: 13.20 09/2022 PSA: 13.60 IMAGING: None on file ALLERGIES: ALLERGIES No Known Allergies MEDICATIONS: Current Outpatient Medications Medication Sig ZYBAN 150 MG TAB Take one(1) tablet daily. No current facility-administered medications for this visit. HISTORIES No past medical history on file. PAST SURGICAL HISTORY Procedure Laterality Date AUGMENT LOWER JAW BONE,BONE GRAFT 1985 REPAIR SHOULDER CAPSULE,ANTERIOR repair of ligament Social History Tobacco Use Smoking status: Every Day Packs/day: 0.50 Years: 20.00 Pack years: 10.00 Types: Cigarettes Substance Use Topics Alcohol use: Yes Comment: occasionally REVIEW OF SYSTEMS General: Genitourinary: No history of dysuria, frequency or incontinence The remainder of the ROS was reviewed and conccontributory. PHYSICAL EXAMINATION There were no vitals taken for this visit. General: No acute distress Genitourinary: FLAVIO benign, 40-50g prostate PROBLEMS: 1. Elevated prostate specific antigen (PSA) - ICD9: 790.93, ICD10: R97.20 ASSESSMENT & PLAN: Inga Velarde is a 62 year old male who presents with elevated PSA. He had two negative biopsies in the past. Last biopsy 02/2022. MRI records missing. Negative MRI as per patient. We discussed elevated PSA, the benign and malignant causes of it. He has two negative biopsies. However, the OSH MRI is missing. FLAVIO benign today. Request prostate MRI from OSH and have it reread at [facility] PSA in 6 months Dictation assisted by Nixon Wilson MD I spent a total of 45 minutes on the date of the service which included preparing to see the patient, [id number] patient care, and completing clinical documentation. Wilbur Avila MD Associate Staff, Department of Urology [facility]ly [facility] documented in this encounter [facility] Diagnosis Encounter for observation for other suspected diseases and conditions ruled out- Primary Elevated prostate specific antigen (PSA) [facility] Diagnosis Encounter for observation for other suspected diseases and conditions ruled out Elevated prostate specific antigen (PSA) [facility] Diagnosis Elevated prostate specific antigen (PSA)- Primary documented in this encounter [facility] Reason for Referral Specialty Diagnoses / Procedures Referred By Raji t Referred To Contact MR IMAGING Diagnoses Encounter for observation for other suspected diseases and conditions ruled out Elevated prostate specific antigen (PSA) Procedures MRI 3D POST PROCESSING 3D RENDERING W/INTERP&POSTPROC DIFF WORK STATION Wilbur Avila MD [address] [place] [address] Mr Imaging Referral ID Status Reason Start Date Expiration Date Visits Requested Visits Authorized [id number] Authorized Auto-Generat ed Referral 04/24/2023 05/23/2024 1 1 Specialty Diagnoses / Procedures Referred By Raji t Referred To Contact MR IMAGING Diagnoses Encounter for observation for other suspected diseases and conditions ruled out Elevated prostate specific antigen (PSA) Procedures MRI PROSTATE WO/W IVCON MRI PELVIS W/O & W/CONTRAST MATERIAL Wilbur Avila MD [address] [place] [address] Mr Imaging Referral ID Status Reason Start Date Expiration Date Visits Requested Visits Authorized [id number] Authorized Auto-Generat ed Referral 04/24/2023 05/23/2024 1 1 Specialty Diagnoses / Procedures Referred By Raji t Referred To Contact MR IMAGING Diagnoses Encounter for observation for other suspected diseases and conditions ruled out Elevated prostate specific antigen (PSA) Procedures MRI 3D POST PROCESSING 3D RENDERING W/INTERP&POSTPROC DIFF WORK STATION Wilbur Avila MD [address] [place] [address] Imaging [place] [id number] Referral ID Status Reason Start Date Expiration Date V isits Requested Visits Authorized [id number] Closed Auto-Generate d Referral 04/24/2023 05/23/2024 1 1 Specialty Diagnoses / Procedures Referred By Raji t Referred To Contact MR IMAGING Diagnoses Encounter for observation for other suspected diseases and conditions ruled out Elevated prostate specific antigen (PSA) Procedures MRI PROSTATE WO/W IVCON MRI PELVIS W/O & W/CONTRAST MATERIAL Wilbur Avila MD [address] [place] [address] [place] [id number] Referral ID Status Reason Start Date Expiration Date V isits Requested Visits Authorized [id number] Closed Auto-Generate d Referral 04/24/2023 05/23/2024 1 1 Summary Purpose Family History No Family History Records FoundNo Family History Records Found Advance Directives No Advanced Directives Records FoundNo Advanced Directives Records Found Additional Source Comments Source Comments (unrecognize d section and content) In the event this informatio n is protected by the Federal Confidentiality of Alcohol and Drug Abuse Patient Records regulations: The Federal rules restrict any use of the information to criminally investigate or prosecute any alcohol or drug abuse patient.[facility] the event this information is protected by the Federal Confidentiality of Alcohol and Drug Abuse Patient Records regulations: The Federal rules restrict any use of the information to criminally investigate or prosecute any alcohol or drug abuse patient.[facility] the event this information is protected by the Federal Confidentiality of Alcohol and Drug Abuse Patient Records regulations: The Federal rules restrict any use of the information to criminally investigate or prosecute any alcohol or drug abuse patient.[facility] the event this information is protected by the Federal Confidentiality of Alcohol and Drug Abuse Patient Records regulations: The Federal rules restrict any use of the information to criminally investigate or prosecute any alcohol or drug abuse patient.[facility] the event this information is protected by the Federal Confidentiality of Alcohol and Drug Abuse Patient Records regulations: The Federal rules restrict any use of the information to criminally investigate or prosecute any alcohol or drug abuse patient.[facility] Reason for Visit (unrecogniz ed section and content) Reason Comments Consult Reason Comments Results Reason Comments Radiology MRI Specialty Diagnoses / Procedures Referred By Contac t Referred To Contact MR IMAGING Diagnoses Encounter for observation for other suspected diseases and conditions ruled out Elevated prostate specific antigen (PSA) Procedures MRI PROSTATE WO/W IVCON MRI PELVIS W/O & W/CONTRAST MATERIAL Wilbur Avila MD [address] [place] [address] Mr Imaging [place] [id number] Referral ID Status Reason Start Date Expiration Date V isits Requested Visits Authorized [id number] Closed Auto-Generate d Referral 04/24/2023 05/23/2024 1 1 Reason Comments Follow Up Care Teams (unrecognized sec tion and content) Gate Agent Relationship Specialty Start Date End Date Diogo Aviles MD [address] [facility] [address] [place], [place] [id number] PCP - General Family Medicine 11/18/21 Gate Agent Relationship Specialty Start Date End Date Diogo Aviles MD [address] [place] [address] PCP - General Family Medicine 11/18/21 Gate Agent Relationship Specialty Start Date End Date Diogo Aviles MD [address] [place] [id number] PCP - General Family Medicine 11/18/21 Gate Agent Relationship Specialty Start Date End Date Diogo Aviles MD [address] [place] [id number] PCP - General Family Medicine 11/18/21 (unrecognized sect ion and content) No Status Records FoundNo Status Records Found INFORMATION SOURCE (unrecogn ized section and content) DATE CREATED AUTHOR AUTHOR'S ORGANIZ ATION 07/01/2023 [facility] FOR RECORDS PERTAINING TO PATIENTS WHO ARE OR HAVE BEEN ENROLLED IN A CHEMICAL DEPENDENCY/SUBSTANCEABUSE PROGRAM, SOME INFORMATION MAY BE OMITTED. This clinical summary was aggregated from multiple sources. Caution should be exercised in using it in the provision of clinical care. This summary normalizes information from multiple sources, and as a consequence, information in this document may materially change the coding, format and clinical context of patient data. In addition, data may be omitted in some cases. CLINICAL DECISIONS SHOULD BE BASED ON THE PRIMARY CLINICAL RECORDS. [facility] provides no warranty or guarantee of the accuracy or completeness of information in this document.
[2023-12-11 10:37] LABS: AST(SGOT) 16 U/L (15-37); Alanine Aminotransfer ALT/SGPT 21 U/L (16-61); Albumin, Serum 3.9 g/dL (3.2-5.0); Alkaline Phosphatase 85 U/L (45-117); Anion Gap 4 (5-15); BUN 11 mg/dL (7-18); BUN/Creat Ratio 10.6 RATIO (10-20); Calcium,Total 9.5 mg/dL (8.5-10.1); Chloride 106 mmol/L (98-107); Cholesterol 194 mg/dL (200); Creatinine, Serum 1.04 mg/dL (0.70-1.30); EST Glomerular Filtration Rate 77 mL/min (>60); Est Glom Filt Rate - Afr Amer 93 mL/min (>60); Globulin 3.8 g/dL (2.2-4.2); Glucose 114 mg/dL (74-106); High Density Lipoprotein 44 mg/dL; Potassium 4.2 mmol/L (3.5-5.1); Protein, Total 7.7 g/dL (6.4-8.2); Sodium Level 139 mmol/L (136-145); Triglycerides 206 mg/dL; Very Low Density Lipoprotein 41 mg/dL (5-40)
== END | disposition home or self-care (01) ==
PROVIDERS: PCP Family Medicine; Referring Provider Family Medicine; Visit Provider Family Medicine
DX: I25.10 Atherosclerotic heart disease of native coronary artery without angina pectoris (principal)
CPT/HCPCS: 36415; 80053; 80061

== ENCOUNTER → 2024-01-01 | Outpatient (CLI) | payer OTHER, SELFPAY ==
[2024-01-01 17:42] LABS: Absolute Lymphocyte Count 1.19 X10^3/uL (0.83-4.51); Absolute Neutrophil Count 4.2 X10^3/uL (2.0-7.7); Basophil# 0.05 X10^3/uL; Basophil% 0.8 % (0-1); Eosinophil# 0.07 X10^3/uL; Eosinophils% 1.2 % (0-5); Hematocrit 43.1 % (40-54); Hemoglobin 14.4 g/dL (13.0-16.5); Lymphocyte # 1.19 X10^3/ul (0.83-4.51); Lymphocyte % 19.6 % (19-41); Mean Corp Hgb Conc 33.4 g/dL (32-36); Mean Corpuscular Hgb 29.6 pg (27.0-32.0); Mean Corpuscular Volume 88.7 fL (80-94); Mean Platelet Vol. 10.1 fl (6.2-12.0); Monocyte# 0.59 X10^3/uL; Monocyte% 9.7 % (0-10); NRBC Flagged by Analyzer 0 % (0-5); Neutrophil # 4.15 X10^3/uL (2.7-7.7); Neutrophil % 68.2 % (47-70); Platelet Count 284 K/mm3 (150-450); RBC Distribution Width CV 12.4 % (11.6-14.6); RBC Distribution Width SD 40.5 fl (35.1-43.9); Red Blood Count 4.86 M/mm3 (4.6-6.2); White Blood Count 6.1 K/mm3 (4.4-11.0)
[2024-01-01 18:01] LABS: Erythrocyte Sedimentation Rate 27 mm/hr (0-20)
[2024-01-01 18:07] LABS: ALB/GLOB Ratio 0.9 RATIO (0.9-2.4); AST(SGOT) 17 U/L (15-37); Alanine Aminotransfer ALT/SGPT 19 U/L (16-61); Albumin, Serum 3.8 g/dL (3.2-5.0); Alkaline Phosphatase 87 U/L (45-117); Anion Gap 9 (5-15); BUN 10 mg/dL (7-18); BUN/Creat Ratio 11.6 RATIO (10-20); Calcium,Total 9.2 mg/dL (8.5-10.1); Chloride 104 mmol/L (98-107); Creatinine, Serum 0.86 mg/dL (0.70-1.30); EST Glomerular Filtration Rate 95 mL/min (>60); Est Glom Filt Rate - Afr Amer 115 mL/min (>60); Globulin 4.1 g/dL (2.2-4.2); Glucose 103 mg/dL (74-106); Potassium 4.3 mmol/L (3.5-5.1); Protein, Total 7.9 g/dL (6.4-8.2); Rheumatoid Factor < 10.0 IU/mL (<15); Sodium Level 139 mmol/L (136-145)
--- OUTSIDE RECORDS SUMMARY | 2024-01-01 22:44 | XMS RPT_ITS | CCD ---
Author Name Unknown Address [address] [place] [address] Organization [facility] Care Team Providers Care Foreign Exchange Services Manager Name Role Phone Diogo Aviles MD Primary [...] 97.2 [degF] Wilbur Avila MD Work Phone: [facility] 07-01-2023 09:10-0400 Body weight 72.12 kg Wilbur Avila MD Work Phone: [facility] 07-01-2023 09:10-0400 Diastolic blood pressure 73 mm[Hg] Wilbur Avila MD Work Phone: [facility] 07-01-2023 09:10-0400 Heart rate 79 /min Wilbur Avila MD Work Phone: [facility] 07-01-2023 09:10-0400 Systolic blood pressure 127 mm[Hg] Wilbur Avila MD Work Phone: [facility] 11-12-2022 12:59-0500 Body temperature 97.9 [degF] Wilbur Avila MD Work Phone: [facility] 11-12-2022 12:59-0500 Body weight 75.48 kg Wilbur Avila MD Work Phone: [facility] 11-12-2022 12:59-0500 Diastolic blood pressure 79 mm[Hg] Wilbur Avila MD Work Phone: [facility] 11-12-2022 12:59-0500 Heart rate 82 /min Wilbur Avila MD Work Phone: [facility] 11-12-2022 12:59-0500 Systolic blood pressure 128 mm[Hg] Wilbur Avila MD Work Phone: [facility] Encounters Encounter Date Encounter Type Care Provider Facility Start: 07-01-2023 End: 07-01-2023 ambulatory DIOGO AVILES Facility:[facility] Start: 07-01-2023 End: 07-01-2023 Patient encounter procedure Wilbur Avila MD Work Phone: Urology Procedures Date Procedure Procedure Detail Performing Clinician Start: 06-27-2023 MRI 3D POST PROCESSING Wilbur Avila MD Work Phone: Start: 06-27-2023 Mri pelvis w/o & w/contrast material Wilbur Avila MD Work Phone: Plan of Treatment Date Care Activity Detail Author Start: 04-16-2028 PROSTATE CANCER SCREENING DISCUSSION PROSTATE CANCER SCREENING DISCUSSION [facility] Start: 06-21-2023 Influenza vaccination INFLUENZA (#1) [facility] Start: 10-21-2022 DEPRESSION ASSESSMENT DEPRESSION ASSESSMENT [facility] Start: 06-21-2022 Influenza vaccination INFLUENZA (#1) [facility] Start: 12-11-2021 COVID-19 VACCINE (5 - Booster for Pfizer series) COVID-19 VACCINE (5 - Booster for Pfizer series) [facility] Start: 12-11-2021 COVID-19 VACCINE (5 - Pfizer series) COVID-19 VACCINE (5 - Pfizer series) [facility] Start: 02-17-2016 PROSTATE CANCER SCREENING DISCUSSION PROSTATE CANCER SCREENING DISCUSSION [facility] Start: 2011 SHINGRIX VACCINE (1 of 2) SHINGRIX VACCINE (1 of 2) [facility] Start: 2006 COLOGUARD (FIT-DNA) COLOGUARD (FIT-DNA) [facility] Start: 2006 Colonoscopy COLONOSCOPY [facility] Start: 2006 COLORECTAL CANCER SCREENING COLORECTAL CANCER SCREENING [facility] Start: [address] COLONOGRAPHY [facility] Start: 2006 DIABETES SCREEN DIABETES SCREEN [facility] Start: 2006 FECAL OCCULT BLOOD FECAL OCCULT BLOOD [facility] Start: 2006 SIGMOIDOSCOPY SIGMOIDOSCOPY [facility] Start: 02-17-1996 LIPID SCREEN LIPID SCREEN [facility] Start: 02-17-1980 Urine microalbumin profile DTAP,TDAP,TD (1 - Tdap) [facility] Start: 1979 HEPATITIS C SCREENING HEPATITIS C SCREENING [facility] Start: 1979 HIV SCREENING HIV SCREENING [facility] Start: 1967 PNEUMOCOCCAL (1 - PCV) PNEUMOCOCCAL (1 - PCV) [facility] End: 05-23-2024 MRI 3D POST PROCESSING MRI 3D POST PROCESSING Radiology Routine Encounter for observation for other suspected diseases and conditions ruled out Elevated prostate specific antigen (PSA) 1 Occurrences starting 04/24/2023 until 05/23/2024 [facility] Work Phone: Payers Date Payer Category Payer Private Health Insurance [facility] UMR CHOICE PLUS [id number] 2020-Present [phone] [address] [address] [place] [address] O [id number] 2020 Unknown [id number] Social History Date Type Detail Facility [facility] End: 12-19-2022 History of tobacco use Cigarette Smoker [facility] Start: 09-24-2005 End: 07-01-2023 Alcohol intake Current drinker of alcohol (finding) [facility] Start: 1960 Sex Assigned At Male [facility] Start: 11-12-2022 End: 07-01-2023 History of Social function [facility] Start: 11-12-2022 End: 07-01-2023 Area Deprivation Index [facility] National Score (1-10 0), lower number is lower risk 63 [facility] Start: 05-18-2020 Gender identity Identifies as male gender (finding) [facility] Start: 05-18-2020 Sexual orientation Heterosexual (fin ding) [facility] Start: 07-01-2023 Tobacco smoking stat us [facility] Ex-smoker [facility] End: 12-19-2022 History of tobacco use Current smoker [facility] Start: 07-01-2023 Tobacco use and exposure Smoke less tobacco non-user [facility] Clinical Notes 11-12-2022 to 07-01-2023 Wilbur Avila MD - 07/01/2023 9:30 AM Eileen Klein RN - 06/27/2023 8:00 AM Shelli Heath RT(R) - 06/27/2023 8:00 AM EDTTelephone Encounter - Wilbur Avila MD - 04/24/2023 10:10 AM EDT Note Date & Type Note Facility 07-01-2023 Note HNO ID: [id number] Author: Wilbur Avila MD Service: ? Author Type: Physician Type: Progress Notes Filed: 07/01/2023 9:59 AM Note Text: [facility] HISTORY AND PHYSICAL EXAM PATIENT INFO: Inga Velarde CHIEF COMPLAINT: elevated psa HPI Inga Velarde is a 63 year old male who presents for elevated psa follow up Has history of elevated PSA to 13, (6- 8 starting around 8 years ago per pt), previous biopsy negative in [place]. Had genetic risk test (does not recall), was low risk for cancer. 01/2022 PSA: 13.20 09/2022 PSA: 13.60 03/2023 PSA: 12.58 Last biopsy was 02/2022, negative (OSH) 07/2021 Prostate MRI reread at [facility]: 49g prostate. Right mid/base TZ pirads 3 [...] which included preparing to see the patient, [id number] patient care, and completing clinical documentation. Wilbur Avila MD Associate Staff, Department of Urology [facility] [place] [facility] 07-01-2023 History of Presen t illness Narrative [facility] HISTORY AND PHYSICAL EXAM PATIENT INFO: Inga Velarde CHIEF COMPLAINT: elevated psa HPI Inga Velarde is a 63 year old male who presents for elevated psa follow up Has history of elevated PSA to 13, (6- 8 starting around 8 years ago per pt), previous biopsy negative in [place]. Had genetic risk test (does not recall), was low risk for cancer. 01/2022 PSA: 13.20 09/2022 PSA: 13.60 03/2023 PSA: 12.58 Last biopsy was 02/2022, negative (OSH) 07/2021 Prostate MRI reread at [facility]: 49g prostate. Right mid/base TZ pirads 3 [...] which included preparing to see the patient, [id number] patient care, and completing clinical documentation. Wilbur Avila MD Associate Staff, Department of Urology [facility] [place] documented in this encounter [facility] 06-27-2023 Note HNO ID: [id number] Author: Eileen Blue RN Service: Radiology Author [...] DATE: June 27, 2023 TIME: 7:44 AM [facility] 06-27-2023 Note HNO ID: [id number] Author: Shelli Wilson RT(R) Service: Radiology Author [...] RT Armando(R) June 27, 2023 9:41 AM [facility] 06-27-2023 History of Presen t [...] RT Armando(R) June 27, 2023 9:41 AM documented in this encounter [facility] 04-24-2023 Miscellaneous Notes Discussed the lesions on the past MRI in 2020. We discussed a fusion biopsy. However the MRI is from 2 years ago. We discussed a repeat MRI to evaluate better. Wilbur Avila MD documented in this encounter [facility] 11-12-2022 Nurse Note PVR=15ml Dr sara Akins MA November 12, 2022 4:22 PM documented in this encounter [facility] 11-12-2022 Note HNO ID: [id number] Author: Wilbur Avila MD Service: ? Author Type: Physician Type: Progress Notes Filed: 11/12/2022 1:57 PM Note Text: [facility] HISTORY AND PHYSICAL EXAM PATIENT INFO: Inga PULLIAM M.D.: Fred Peguero () [address] [address] PCP: Diogo Aviles MD Consultation requested by Fred Peguero () [address] [address] and my final recommendations will be communicated back to the requesting physician by way of shared medical record or letter via [place] mail. CHIEF COMPLAINT: Elevated PSA HPI Inga Velarde is a 62 year old male who presents for evaluation of elevated PSA. Has history of elevated PSA to 13, (6- 8 starting around 8 years ago per pt), previous biopsy negative in [place]. Had genetic risk test (does not recall), [...] from OSH and have it reread at [facility] PSA in 6 months Dictation assisted by Nixon Wilson MD I spent a total of 45 minutes on the date of the service which included preparing to see the patient, [id number] patient care, and completing clinical documentation. Wilbur Avila MD Associate Staff, Department of Urology [facility] [place] [facility] 11-12-2022 Miscellaneous Notes Just want to make sure that the PSA lab order is in for patient for when he goes for his lab work in 6 months documented in this encounter [facility] 11-12-2022 History of Presen t illness Narrative [facility] HISTORY AND PHYSICAL EXAM PATIENT INFO: Inga Velarde REFERRING M.D.: Fred Peguero ([facility]) [address] [place] [id number] PCP: Diogo Aviles MD Consultation requested by Fred Peguero ([facility]) [address] [address] and my final recommendations will be communicated back to the requesting physician by way of shared medical record or letter via [place] mail. CHIEF COMPLAINT: Elevated PSA HPI Inga Velarde is a 62 year old male who presents for evaluation of elevated PSA. Has history of elevated PSA to 13, (6- 8 starting around 8 years ago per pt), previous biopsy negative in [place]. Had genetic risk test (does not recall), [...] from OSH and have it reread at [facility] PSA in 6 months Dictation assisted by Nixon Wilson MD I spent a total of 45 minutes on the date of the service which included preparing to see the patient, [id number] patient care, and completing clinical documentation. Wilbur Avila MD Associate Staff, Department of Urology [facility] [place] documented in this encounter [facility] Encounter for observation for other suspected diseases and conditions ruled out- Primary Elevated prostate specific antigen (PSA) [facility] Diagnosis Encounter for observation for other suspected diseases and conditions ruled out Elevated prostate specific antigen (PSA) [facility] Elevated prostate specific antigen (PSA)- Primary documented in this encounter [facility] Reason for Referral Specialty Diagnoses / Procedures Referred By Raji t Referred To Contact MR IMAGING Diagnoses Encounter for observation for other suspected diseases and conditions ruled out Elevated prostate specific antigen (PSA) Procedures MRI 3D POST PROCESSING 3D RENDERING W/INTERP&POSTPROC DIFF WORK STATION Wilbur Avila MD [address] [place] [address] Mr Imaging Referral ID Status Reason Start Date Expiration Date Visits Requested Visits Authorized [id number] Authorized Auto-Generat ed Referral 04/24/2023 05/23/2024 1 1 Specialty Diagnoses / Procedures Referred By Raji t Referred To Contact MR IMAGING Diagnoses Encounter for observation for other suspected diseases and conditions ruled out Elevated prostate specific antigen (PSA) Procedures MRI PROSTATE WO/W IVCON MRI PELVIS W/O & W/CONTRAST MATERIAL Wilbur Avila MD [address] [place] [address] [facility] Imaging Referral ID Status Reason Start Date Expiration Date Visits Requested Visits Authorized [id number] Authorized Auto-Generat ed Referral 04/24/2023 05/23/2024 1 1 Specialty Diagnoses / Procedures Referred By Raji t Referred To Contact MR IMAGING Diagnoses Encounter for observation for other suspected diseases and conditions ruled out Elevated prostate specific antigen (PSA) Procedures MRI 3D POST PROCESSING 3D RENDERING W/INTERP&POSTPROC DIFF WORK STATION Wilbur Avila MD [address] [place] [address] Imaging [place] [address] Referral ID Status Reason Start Date Expiration Date V isits Requested Visits Authorized [id number] Closed Auto-Generate d Referral 04/24/2023 05/23/2024 1 1 Specialty Diagnoses / Procedures Referred By Raji t Referred To Contact MR IMAGING Diagnoses Encounter for observation for other suspected diseases and conditions ruled out Elevated prostate specific antigen (PSA) Procedures MRI PROSTATE WO/W IVCON MRI PELVIS W/O & W/CONTRAST MATERIAL Wilbur Avila MD [address] [place] [address] [place] [id number] Referral ID Status Reason Start Date Expiration Date V isits Requested Visits Authorized [id number] Closed Auto-Generate d Referral 04/24/2023 05/23/2024 1 [...] or prosecute any alcohol or drug abuse patient.[facility] the event this information is protected by the Federal Confidentiality of Alcohol and Drug Abuse Patient Records regulations: The Federal rules restrict any use of the information to criminally investigate or prosecute any alcohol or drug abuse patient.[facility] the event this information is protected by the Federal Confidentiality of Alcohol and Drug Abuse Patient Records regulations: The Federal rules restrict any use of the information to criminally investigate or prosecute any alcohol or drug abuse patient.[facility] the event this information is protected by the Federal Confidentiality of Alcohol and Drug Abuse Patient Records regulations: The Federal rules restrict any use of the information to criminally investigate or prosecute any alcohol or drug abuse patient.[facility] the event this information is protected by the Federal Confidentiality of Alcohol and Drug Abuse Patient Records regulations: The Federal rules restrict any use of the information to criminally investigate or prosecute any alcohol or drug abuse patient.[facility] Reason for Visit (unrecogniz ed section and content) Reason Comments Consult Reason Comments Results Reason Comments Radiology MRI Specialty Diagnoses / Procedures Referred By Contac t Referred To Contact MR IMAGING Diagnoses Encounter for observation for other suspected diseases and conditions ruled out Elevated prostate specific antigen (PSA) Procedures MRI PROSTATE WO/W IVCON MRI PELVIS W/O & W/CONTRAST MATERIAL Wilbur Avila MD [address] [place] [address] Mr Imaging [place] [address] Referral ID Status Reason Start Date Expiration Date V isits Requested Visits Authorized [id number] Closed Auto-Generate d Referral 04/24/2023 05/23/2024 1 1 Reason Comments Follow Up Care Teams (unrecognized sec tion and content) Foreign Exchange Services Manager Relationship Specialty Start Date End Date Diogo Aviles MD [address] [place] [place] [address] PCP - General Family Medicine 11/18/21 Foreign Exchange Services Manager Relationship Specialty Start Date End Date Diogo Aviles MD [address] [place] [address] PCP - General Family Medicine 11/18/21 Foreign Exchange Services Manager Relationship Specialty Start Date End Date Diogo Aviles MD [address] [place] [id number] PCP - General Family Medicine 11/18/21 Foreign Exchange Services Manager Relationship Specialty Start Date End Date Diogo Aviles MD [address] [place] [place] [id number] PCP - General Family Medicine 11/18/21 (unrecognized sect ion and content) No Status Records FoundNo Status Records Found INFORMATION SOURCE (unrecogn ized section and content) DATE CREATED AUTHOR AUTHOR'S ORGANIZ ATION 07/01/2023 [facility] FOR RECORDS PERTAINING TO PATIENTS WHO [...] BE BASED ON THE PRIMARY CLINICAL RECORDS. [facility]. provides no warranty or guarantee of the accuracy or completeness of information in this document.
[2024-01-03 12:09] LABS: ANTINUCLEAR ANTIBODIES DIRECT Positive (Negative)
[2024-01-09 17:07] LABS: HLA B27 Positive (.)
== END | disposition home or self-care (01) ==
PROVIDERS: PCP Family Medicine; Referring Provider Family Medicine; Visit Provider Family Medicine
DX: R76.8 Other specified abnormal immunological findings in serum (principal)
CPT/HCPCS: 36415; 80053; 81374; 85025; 85652; 86038; 86140; 86431

== ENCOUNTER → 2024-01-20 | Outpatient (CLI) | payer OTHER, SELFPAY ==
[2024-01-22 10:16] LABS: Anti-Centromere B Ab <0.2 AI (0.0-0.9); Anti-Chromatin 0.4 AI (0.0-0.9); Anti-Jo <0.2 AI (0.0-0.9); Anti-Nuclear Antibody Test Negative (.); Anti-Scleroderma-70 AB <0.2 AI (0.0-0.9); Anti-dsDNA Ab 5 IU/mL (0-9); RNP Ab 0.3 AI (0.0-0.9); SJOGREN'S Anti-SS-A test < 0.2 AI (0.0-0.9); SJOGREN'S Anti-SS-B test < 0.2 AI (0.0-0.9); Smith Ab <0.2 AI (0.0-0.9)
== END | disposition home or self-care (01) ==
PROVIDERS: PCP Family Medicine; Referring Provider Family Medicine; Visit Provider Family Medicine
DX: R76.8 Other specified abnormal immunological findings in serum (principal)
CPT/HCPCS: 36415; 86038; 86225; 86235

== ENCOUNTER → 2024-01-22 | Outpatient (CLI) | payer OTHER, SELFPAY ==
--- NOTE | 2024-01-22 06:37 | MRI_ITS ---
STUDY: MRI CERVICAL SPINE WITHOUT CONTRAST REASON FOR EXAM: Male, 63 years old. DDD, NECK PAIN TECHNIQUE: Standardized fat and water weighted pulse sequences were obtained in the sagittal and axial planes. COMPARISON: Cervical spine radiographs 08/30/2023. FINDINGS: Normal foramen magnum and brainstem-cervical cord junction. Normal craniovertebral junction. Normal anterior atlantoaxial articulation. Normal odontoid process. Normal cervical lordosis. No focal signal abnormalities of the vertebral bodies and posterior osseous elements. There is ankylosis of the bilateral C2-C3 facet joints and bilateral C3-C4 facet joints. 1 x 0.8 x 0.9 cm T1 and T2 dark intensity in the right side of the C7 vertebral body is bone island. C2-3: Normal endplates. Normal disc height, signal and morphology. Normal central canal and intervertebral neural foramina. C3-4: Normal endplates. Normal disc height, signal and morphology. Normal central canal and intervertebral neural foramina. C4-5: Normal endplates. Normal disc height. Minimal ventral extradural defect due to small posterior bulging annulus. Normal central canal and right intervertebral neural foramen. Mild stenosis of the left intervertebral neural foramen due to osteophyte arising from the left degenerative facet arthropathy. C5-6: Normal endplates. Pronounced posterior disc space height narrowing. Mild ventral extradural defect due to posterior marginal spur touching the ventral cord surface. This is causing mild central canal stenosis. Normal left intervertebral neural foramen. Mild stenosis of the right intervertebral neural foramen. C6-7: Normal endplates. Normal disc height, signal and morphology. Normal central canal and intervertebral neural foramina. C7-T1: Normal endplates. Normal disc height, signal and morphology. Normal central canal and intervertebral neural foramina. T1-T2: (Sagittal only). Normal T1 inferior endplate. Mild anterior wedging of T2 superior endplate causing increased disc space height is from remote injury. Normal central canal and intervertebral neural foramina. T2-T3 and T3-T4: (Sagittal only). Normal endplates. Normal disc height and morphology. Normal central canal and intervertebral neural foramina. T4-T5: (Sagittal only). Normal endplates. Mild disc space height narrowing. Normal disc signal and morphology. No ventral extradural defect. Normal central canal and intervertebral neural foramina. Mild deformity of the ventral cord surface at C5-C6 disc space level due to bone spur. No intrinsic signal abnormality of the cervical spinal cord. Normal remaining cervical spinal cord. Normal upper thoracic spinal cord. Normal included brainstem and cerebellum. Normal midline pituitary gland and suprasellar cistern. Normal visualized soft tissue structures. MRI/Spine Cervical (Routine) IMPRESSION: 1. No MRI evidence of cervical extruded disc fragment or cervical disc protrusion. 2. Prominent posterior midline marginal spur at C5-C6 disc space level causing mild deformity of the ventral surface of the cervical spinal cord. No intrinsic signal abnormality of the cervical spinal cord and mild stenosis of the right C5-C6 intervertebral neural foramen. 3. Mild stenosis of the left C4-C5 intervertebral neural foramen due to osteophyte arising from the left facet joint and small posterior bulging annulus. 4. Mild old anterior wedge compression fracture deformity of the upper T2 vertebral body. 5. 1 cm bone island in the right side of the C7 vertebral body. Electronically Signed: Jersey Siu MD at 11:14 EDT ,
== END | disposition home or self-care (01) ==
LOC: MRI 06:32
PROVIDERS: PCP Family Medicine; Referring Provider Family Medicine; Visit Provider Family Medicine
DX: M50.30 Other cervical disc degeneration, unspecified cervical region (principal)
CPT/HCPCS: 72141

== ENCOUNTER 2024-04-22 09:00 | Outpatient (RCR) | payer OTHER, SELFPAY ==
--- NOTE | 2024-03-02 08:43 | HP.PTEVAL ---
Patient's Visit Information Visit Information Visit Information: INGA EDWARD is a 64 year old M referred to Physical Therapy by Dr. Kelechi Felder MD with a diagnosis of cervical DDD. Date of Evaluation: 03/02/24 Physical Therapist: Dorian Clayton, DPT, OCS, CSCS Visit Plan Frequency: 3x /Week Duration: 4-6 Weeks Plan: 3x/week for 3-6 weeks for Magnificently stiff neck 1. MH and STM to pericervical mm in neck pre PROM manually and ROM exercises to increase neck movement, cervical neck mobs grade 4 to tolerance ext and rotation and SB Very stiff neck needs more ROM IE: given cervical retractionand B rootations and B SB with OP 12x 3x./day and scap cirlces throughout day as HEP today Subjective Subjective: Had neck issues in the past. For the last year when he turns R or looks up to the right gets jolt of pain on R side of neck. Sneezing and coughing can cause a transient pain. L side is OK. No SANTIAGO noted. Arm feels fine without numbnes sor tingling. Sleeping is not a problem. Employed web marketing manager travelling, turning head to the right for blind spot hurts. Enjoys fishing , hunting and motorcylce riding and can do them. Pain R neck: Pain Intensity (Out of 10): 0 Pain Intensity Range: 0 and 5 Objective Objective: Extreme forward head posture and elevated scap with protraction. cervical AROM 20 L rotations and 18 R rotation with pain, ext nil, flexion 20, SB R hurts 7 degrees, L 5 degrees and no pain. Very stiff neck which moves poorly but not painful at resdt, mostly with R rotation and extension. UE AROM WFL shoulders elbows and wrists. strength shoulders elbows and wrists 4/5 without pain. reflexes 2/3 bi and tri B. Sensation WNL B UE. Mild tenderness only in R UT. - c/s compression. - VAT as b est I can test today with his stiffness. Balance/Special Test Scores Oswestry Neck Score: 6 Goals Goal 1:: 40 degrees B cervical rotation and 25 extension to show improved ROM. Goal Time Frame: 4-6 Weeks Goal 2:: Pain in neck with R rotation 1/10 at worst and manageable Goal Time Frame: 4-6 Weeks Goal 3:: Pt feel overall pain is 80% better with activities. Goal Time Frame: 4-6 Weeks Goal 4:: turn head R in car without increased pain to see traffic. Goal Time Frame: 4-6 Weeks Goal 5:: oswestry score 2 or better Goal Time Frame: 4-6 Weeks Rehabilitation Potential Physical Therapy Diagnosis: lacks ROM and movement in neck and pain limiting comfortable funciton Rehabilitation Potential: Fair Anticipated Interventions Patient/Client Instruction: Educate patient on: Condition and Risk Factors For the Purpose of:: To decrease pain, To increase ROM and To increase flexibility/ROM Therapeutic Exercise to Include: Strength training, Postural training, Flexibilty training, Passive ROM and Active ROM For the Purpose of:: To decrease pain, To increase ROM, To improve nutrient delivery to tissue, To improve muscle performance and motor function, To increase tolerance to activity/condition/position, To improve ability of physical actions for home/community/work/leisure and To improve gait and locomotor functions Manual Therapy Techniques to Include: Mobilization, Passive ROM and Soft tissue mobilization For the Purpose of:: To decrease pain, To increase ROM, To improve nutrient delivery to tissue, To increase tolerance to activity/condition/position and To improve ability of physical actions for home/community/work/leisure Thermo therapy (hot pack): Yes For the Purpose of:: To increase ROM and To improve nutrient delivery to tissue Text: Thank you for the opportunity to evaluate your patient. For Medicare and Medicare HMO plans, please review the plan of care and approve it. It will need to be FAXED BACK to us at [phone] for Medicare purposes. For Medicare only, by signing this I certify the plan of care. Please let me know if there are questions or concerns regarding this plan of care. Physician Signature: Date:
--- NOTE | 2024-04-22 09:50 | HP.PTREVAL ---
Re-Evaluation Intro: Dr. Kelechi Felder MD, It has been my pleasure to treat INGA EDWARD over the last 16 visits for cervical DDD. Please see the progress note below for an update on the physical therapy plan of care! Subjective Subjective: Improved, still hurts R side neck when he turns R. Feels good looking straight ahead. Motion is improving as he can turn head better in car. Doing isometrics. Saw [facility] via telehealth and got script for midol for antiinflammatory. Also got flexeril and they both help. Pain to 6/10 this week with turning trasniently but typically better at less than 2/10. Back to doctor in . Objective Objective/Function: 45 degree L rotation adn 40 R rotation. extension is 28 degrees. Moving more comfortably but porgress is very slow. Reviewed other options with patient Goals and new goal appropriate with fair prognosis. Plan Plan Plan: Pt wishes to try at home and f/u for ROM and progress check in a month and decide on d/c at that time. To continue iso strength adn stretches/ROM in the meantime. Fair prognosisi for continued improvement and pt to call prior if worsens and likely return to [facility] for next step. Balance/Gait/Functional tests Balance/Special Test Scores Oswestry Low Back Score: 7 Oswestry Neck Score: 6 Goals Goals Goal 1:: 40 degrees B cervical rotation and 25 extension to show improved ROM. Goal Time Frame: 4-6 Weeks Goal Progress: Goal Met Goal 2:: Pain in neck with R rotation 1/10 at worst and manageable Goal Time Frame: 4-6 Weeks Goal Progress: Progressing Goal 3:: Pt feel overall pain is 80% better with activities. Goal Time Frame: 4-6 Weeks Goal Progress: 30% Goal 4:: turn head R in car without increased pain to see traffic. Goal Time Frame: 4-6 Weeks Goal Progress: Progressing Goal 5:: oswestry score 2 or better Goal Time Frame: 4-6 Weeks Goal Progress: Progressing Goal 6:: maintain improvements with HEP for next 4 weeks Goal Time Frame: 2-4 Weeks Goal Progress: NEW GOAL Anticipated Interventions Anticipated Interventions Patient/Client Instruction: Educate patient on: Condition and Risk Factors For the Purpose of:: To decrease pain, To increase ROM and To increase flexibility/ROM Therapeutic Exercise to Include: Strength training, Postural training, Flexibilty training, Passive ROM and Active ROM For the Purpose of:: To decrease pain, To increase ROM, To improve nutrient delivery to tissue, To improve muscle performance and motor function, To increase tolerance to activity/condition/position, To improve ability of physical actions for home/community/work/leisure and To improve gait and locomotor functions Manual Therapy Techniques to Include: Mobilization, Passive ROM and Soft tissue mobilization For the Purpose of:: To decrease pain, To increase ROM, To improve nutrient delivery to tissue, To increase tolerance to activity/condition/position and To improve ability of physical actions for home/community/work/leisure Thermo therapy (hot pack): Yes For the Purpose of:: To increase ROM and To improve nutrient delivery to tissue Re-Evaluation Ending Re-evaluation ending: Please do not hesitate to contact me at [phone] by phone or if you have questions or concerns regarding this new plan of care! Sincerely, Dorian Clayton, DPT, OCS, CSCS
--- NOTE | 2024-05-20 09:54 | HP.PTDCSUM ---
Discharge Summary D/C summary: It has been my pleasure to treat INGA EDWARD referred by Dr. Kelechi Felder MD, with the diagnosis of cervical DDD for a total of 17 visit(s). Discharge Date: 05/20/24 Please see the following information for a summary of their discharge status. Subjective Subjective: Last month went pretty well. Anti inflammatory might be helping. Wasin [place] for a number of days and did not flare up. Less pain with rotation and motion feels good. Sleeping is well. Life is normal activity [place] but still gets R sided neck pain with R rotation but not sharp. HEPgoing well for the most part. To doctor in June. Pain R neck: Pain Intensity (Out of 10): 4 Overall Improvement % Improvement: 60 Objective Objective/Function: 60 L rotation adn 53 R rotation, 37 degree extension. No tenderness with palpation, Turning head is improving and still tight aat end range but end range is further out and fucnitonal. Goals Goal 1:: 40 degrees B cervical rotation and 25 extension to show improved ROM. Goal Progress: Goal Met Goal 2:: Pain in neck with R rotation 1/10 at worst and manageable Goal Progress: Progressing Goal 3:: Pt feel overall pain is 80% better with activities. Goal Progress: 60% Goal 4:: turn head R in car without increased pain to see traffic. Goal Progress: Goal Met Goal 5:: oswestry score 2 or better Goal Progress: Progressing Goal 6:: maintain improvements with HEP for next 4 weeks Goal Progress: Goal Met Plan Plan: d/c to HEP D/C Information Discharge Comments: to doctor in 6 weeks d/c sentence: If there are questions or concerns regarding this patient's physical therapy, please feel free to call me at [phone]. Thank you for the referral of this patient. Sincerely, Dorian Clayton, DPT, OCS, CSCS Balance/Gait/Functional tests Balance/Special Test Scores Oswestry Low Back Score: 7 Oswestry Neck Score: 12 Improvement % Improvement: 60
== END 2024-04-22 19:00 | disposition home or self-care (01) ==
LOC: PT 09:00
PROVIDERS: PCP Family Medicine; Referring Provider Family Medicine; Visit Provider Family Medicine
DX: M50.30 Other cervical disc degeneration, unspecified cervical region (principal)
CPT/HCPCS: 97110; 97140; 97161; 97530

== ENCOUNTER → 2025-08-16 | Outpatient (CLI) | payer OTHER, SELFPAY ==
--- NOTE | 2025-08-16 07:51 | CT_ITS ---
PROCEDURE: LOW DOSE CT LUNG SCREENING 08/16/2025 REASON FOR EXAM: TOBACCO USE Patient has smoked 1 pack per day for 49 years. Patient quit 2 years ago. TECHNIQUE: Procedure Code: CTLUNGSCREEN Modality: CT Procedure: LOW DOSE CT LUNG SCREENING Coronal and Sagittal reconstruction series were provided. One or more dose reduction techniques were used (e.g., Automated exposure control, adjustment of the mA and/or kV according to patient size, use of iterative reconstruction technique). REFERENCE LINK: [employer] Lung-RADS RADIATION DOSE SUMMARY: CTDlvol: 3.02 mGy DLP: 108.35 mGycm COMPARISON: None FINDINGS: PULMONARY NODULES: (Only nodules >3mm are reported) Nodules described below are on series 1 unless otherwise specified. Pulmonary Nodules: There is a 4.7 mm nodular density in the anterior apex of the right lung. This may represent a focal area of scarring although an early neoplastic process can not be excluded. Correlation with a PET scan recommended. Hardware:None Lymph Nodes:No suspicious lymph nodes are seen. Heart and Vasculature:Coronary artery calcification.Atherosclerotic calcifications of the thoracic aorta. Thoracic aorta and pulmonary arteries have normal contours; noncontrast technique limits evaluation. Coronary Artery Calcifications: Present Lungs and Airways: Advanced emphysematous changes are present. Mild linear scarring in the lingular segment of the left upper lobe. Pleura:No pleural effusion. Upper Abdomen:Small right renal cyst. Bones:Degenerative changes of the thoracic spine. CT/Low Dose CT Lung Screening IMPRESSION: 4.7 mm nodular density in the anterior apex of the right lung as described. Co rrelation with the PET scan recommended. Coronary artery calcification (CAC) is is present Lung-RADS Category: 4A SUSPICIOUS. RECOMMEND 3 MONTH LDCT; PET/CT MAY BE CONSID ERED IF THERE IS A >=8MM SOLID NODULE OR SOLID COMPONENT. Other Significant Findings: Reading Location: [facility]
== END | disposition home or self-care (01) ==
LOC: CT 07:50
PROVIDERS: PCP Family Medicine; Referring Provider Family Medicine; Visit Provider Family Medicine
DX: Z72.0 Tobacco use (principal)
CPT/HCPCS: 71271

== ENCOUNTER → 2025-08-31 | Outpatient (CLI) | payer OTHER, SELFPAY ==
--- NOTE | 2025-08-31 09:00 | PET_ITS ---
PROCEDURE: PET/PET/CT Tumor Base -Thigh Init
== END | disposition home or self-care (01) ==
LOC: ONC 08:44
PROVIDERS: PCP Family Medicine; Referring Provider Family Medicine; Visit Provider Family Medicine
DX: R91.8 Other nonspecific abnormal finding of lung field (principal)
CPT/HCPCS: 78815; A9552